=== PATIENT | female | born 1940 | race Caucasian/White ===

== ENCOUNTER 2023-02-12 07:51 | Inpatient (IN) | payer MEDICARE ==
[2023-02-12] VITALS (12 sets, daily range): BP systolic 2–166; BP diastolic 59–107
[~2023-02-12] VITALS: Ht 160 cm; Wt 54.2 kg
[2023-02-12 08:17] LABS: BASOPHILS % (AUTO) 0 % (0-10); EOSINOPHILS % (AUTO) 0 % (0-10); HEMATOCRIT 42 % (35-52); HEMOGLOBIN 13.6 g/dL (11.5-16.0); LYMPHOCYTES # (AUTO) 0.7 10^3/uL (1.0-4.0); LYMPHOCYTES % (AUTO) 7 % (12-44); MEAN CORPUSCULAR HEMOGLOBIN 30 pg (25-34); MEAN CORPUSCULAR HGB CONC 33 g/dL (32-36); MEAN CORPUSCULAR VOLUME 93 fL (80-99); MEAN PLATELET VOLUME 9.2 fL (9.0-12.2); MONOCYTES # (AUTO) 0.3 10^3/uL (0.0-1.0); MONOCYTES % (AUTO) 3 % (0-12); NEUTROPHILS # (AUTO) 8.8 10^3/uL (1.8-7.8); NEUTROPHILS % (AUTO) 89 % (42-75); PLATELET COUNT 210 10^3/uL (130-400); WHITE BLOOD COUNT 9.8 10^3/uL (4.3-11.0)
--- NOTE | 2023-02-12 08:22 | ED Dyspnea ---
General Chief Complaint: Respiratory Problems Stated Complaint: SOB Source of Information: Patient, EMS, Senior Living Records Exam Limitations: Other (dementia) History of Present Illness Date Seen by Provider: Feb 12, 2023 Time Seen by Provider: 07:51 Initial Comments 82-year-old female presenting by EMS from [facility] with complaints of shortness of breath. According to the detention she had increasing shortness of breath overnight. EMS reports that her oxygen saturation was 82% on room air when they arrived this morning. They placed her on 10 L by facemask and she came up to 100%. She has 3-4+ pitting edema in her bilateral lower extremities and EMS administered 40 mg of IV Lasix after they established peripheral IV access. She has a non productive cough. She has history of Dementia, CHF, Hypertension, Hyperlipidemia, CAD, Hypothyroid. She was just admitted to [facility] 2 days ago. Her son is in [place]. Timing/Duration: Increasing Severity: Moderate Activities at Onset: Rest Prior Episodes/Possible Cause: Chronic Episodes Associated Symptoms: Chest Pain (gripping chest pain), Cough, Edema Allergies and Home Medications Allergies Coded Allergies: NEIL Inhibitors (Verified Allergy, Unknown, 02/12/23) Iodinated Contrast Media (Verified Allergy, Unknown, 02/12/23) Sulfa (Sulfonamide Antibiotics) (Verified Allergy, Unknown, 02/12/23) clarithromycin (Verified Allergy, Unknown, 02/12/23) codeine (Verified Allergy, Unknown, 02/12/23) diazepam (Verified Allergy, Unknown, 02/12/23) diphenhydramine (Verified Allergy, Unknown, 02/12/23) fentanyl (Verified Allergy, Unknown, 02/12/23) garlic (Verified Allergy, Unknown, 02/12/23) hydrocodone (Verified Allergy, Unknown, 02/12/23) meloxicam (Verified Allergy, Unknown, 02/12/23) tositumomab (Verified Allergy, Unknown, 02/12/23) Patient Home Medication List Home Medication List Reviewed: Yes Review of Systems Review of Systems Constitutional: No chills, No fever EENTM: no symptoms reported Respiratory: see HPI Cardiovascular: see HPI Gastrointestinal: no symptoms reported Genitourinary: no symptoms reported Musculoskeletal: no symptoms reported Skin: no symptoms reported Psychiatric/Neurological: See HPI (chronic dementia) Past Dchefuf-Dnzusf-Owqiok Hx Patient Social History Tobacco Use?: No Substance use?: No Alcohol Use?: No Past Medical History Surgery/Hospitalization HX: Hypothryoid, Hyperlipidemia, Coronary Artery Disease, Hypertension, CHF, Dementia, DNR Physical Exam Vital Signs Vital Signs - First Documented 02/12/23 02/12/23 08:07 09:59 Temp 36.2 Pulse 85 Resp 24 B/P (MAP) 162/94 (116) Pulse Ox 96 O2 Delivery Nasal Cannula O2 Flow Rate 4.00 Capillary Refill : Height, Weight, BMI Height: '" Weight: lbs. oz. kg; BMI Method: General Appearance: No Apparent Distress, Chronically ill HEENT: Pharynx Normal Respiratory: Chest Non Tender, No Accessory Muscle Use, No Respiratory Distress, Decreased Breath Sounds, Rales Cardiovascular: Regular Rate, Rhythm, Normal Peripheral Pulses Gastrointestinal: No Pulsatile Mass, Non Tender, Soft Rectal: Deferred Extremity: Normal Capillary Refill, No Calf Tenderness, Pedal Edema (3 to 4 + pitting edema to BLE to up above her knees) Skin: Warm/Dry, Pallor Focused Exam Lactate Level 02/12/23 07:59: Lactic Acid Level 1.25 Lactic Acid Level Laboratory Tests Test 02/12/23 07:59 Lactic Acid Level 1.25 MMOL/L (0.50-2.00) Progress/Results/Core Measures Results/Orders Lab Results Laboratory Tests Test 02/12/23 07:59 02/12/23 08:10 02/12/23 09:00 Range/Units White Blood Count 9.8 4.3-11.0 10^3/uL Red Blood Count 4.51 3.80-5.11 10^6/uL Hemoglobin 13.6 11.5-16.0 g/dL Hematocrit 42 35-52 % Mean Corpuscular Volume 93 80-99 fL Mean Corpuscular Hemoglobin 30 25-34 pg Mean Corpuscular Hemoglobin Concent 33 32-36 g/dL Red Cell Distribution Width 15.2 H 10.0-14.5 % Platelet Count 210 130-400 10^3/uL Mean Platelet Volume 9.2 9.0-12.2 fL Immature Granulocyte % (Auto) 0 % Neutrophils (%) (Auto) 89 H 42-75 % Lymphocytes (%) (Auto) 7 L 12-44 % Monocytes (%) (Auto) 3 0-12 % Eosinophils (%) (Auto) 0 0-10 % Basophils (%) (Auto) 0 0-10 % Neutrophils # (Auto) 8.8 H 1.8-7.8 10^3/uL Lymphocytes # (Auto) 0.7 L 1.0-4.0 10^3/uL Monocytes # (Auto) 0.3 0.0-1.0 10^3/uL Eosinophils # (Auto) 0.0 0.0-0.3 10^3/uL Basophils # (Auto) 0.0 0.0-0.1 10^3/uL Immature Granulocyte # (Auto) 0.0 0.0-0.1 10^3/uL Neutrophils % (Manual) 83 % Lymphocytes % (Manual) 8 % Monocytes % (Manual) 5 % Eosinophils % (Manual) 0 % Basophils % (Manual) 0 % Band Neutrophils 4 % Platelet Estimate NORMAL Poikilocytosis SLIGHT Acanthocytes SLIGHT Sodium Level 136 135-145 MMOL/L Potassium Level 4.0 3.6-5.0 MMOL/L Chloride Level 98 98-107 MMOL/L Carbon Dioxide Level 23 21-32 MMOL/L Anion Gap 15 H 5-14 MMOL/L Blood Urea Nitrogen 26 H 7-18 MG/DL Creatinine 0.96 0.60-1.30 MG/DL Estimat Glomerular Filtration Rate 60 BUN/Creatinine Ratio 27 Glucose Level 168 H 70-105 MG/DL Lactic Acid Level 1.25 0.50-2.00 MMOL/L Calcium Level 9.3 8.5-10.1 MG/DL Corrected Calcium 9.3 8.5-10.1 MG/DL Magnesium Level 1.8 1.6-2.4 MG/DL Total Bilirubin 0.9 0.1-1.0 MG/DL Aspartate Amino Transf (AST/SGOT) 40 H 5-34 U/L Alanine Aminotransferase (ALT/SGPT) 63 H 0-55 U/L Alkaline Phosphatase 137 H 40-136 U/L Troponin I < 0.30 <0.30 NG/ML C-Reactive Protein < 0.30 <0.50 MG/DL Pro-B-Type Natriuretic Peptide 56617.0 H <450.0 PG/ML Total Protein 6.2 L 6.4-8.2 GM/DL Albumin 4.0 3.2-4.5 GM/DL Influenza Type A (RT-PCR) Not Detected Not Detecte Influenza Type B (RT-PCR) Not Detected Not Detecte SARS-CoV-2 RNA (RT-PCR) Not Detected Not Detecte Urine Color YELLOW Urine Clarity CLEAR Urine pH 5.5 5-9 Urine Specific Cobb 1.025 H 1.016-1.022 Urine Protein 2+ H NEGATIVE Urine Glucose (UA) NEGATIVE NEGATIVE Urine Ketones NEGATIVE NEGATIVE Urine Nitrite NEGATIVE NEGATIVE Urine Bilirubin NEGATIVE NEGATIVE Urine Urobilinogen 0.2 < = 1.0 MG/DL Urine Leukocyte Esterase NEGATIVE NEGATIVE Urine RBC (Auto) TRACE-I H NEGATIVE Urine RBC RARE /HPF Urine WBC 0-2 /HPF Urine Squamous Epithelial Cells NONE /HPF Urine Crystals NONE /LPF Urine Bacteria NEGATIVE /HPF Urine Casts PRESENT /LPF Urine Hyaline Casts 2-5 H /LPF Urine Mucus NEGATIVE /LPF Urine Culture Indicated NO My Orders Orders - RHONDA SILVERIO MD Cbc With Automated Diff (02/12/23 08:06) Comprehensive Metabolic Panel (02/12/23 08:06) Blood Culture (02/12/23 08:06) Chest 1 View Ap/Pa Only (02/12/23 08:06) Magnesium (02/12/23 08:06) Ekg Tracing (02/12/23 08:06) O2 (02/12/23 08:06) Ed Iv/Invasive Line Start (02/12/23 08:06) Monitor-Rhythm Ecg Trace Only (02/12/23 08:06) Crp Fs (02/12/23 08:06) Lactic Acid Analyzer (02/12/23 08:06) Covid 19 Inhouse Test (02/12/23 08:06) Influenza A And B By Pcr (02/12/23 08:06) Troponin I Fs (02/12/23 08:06) Probnp Fs (02/12/23 08:06) Code/Resuscitation (02/12/23 08:09) Manual Differential (02/12/23 07:59) Ellis Cath (02/12/23 08:47) Ua Culture If Indicated (02/12/23 08:47) Ed Admission (Communication) (02/12/23 09:39) Furosemide Injection (Furosemide Injec (02/12/23 09:43) Vital Signs/I&O 02/12/23 02/12/23 08:07 09:59 Temp 36.2 36.0 Pulse 85 85 Resp 24 32 B/P (MAP) 162/94 (116) 164/107 Pulse Ox 96 95 O2 Delivery Nasal Cannula Nasal Cannula O2 Flow Rate 4.00 Admisison Planning May Need Admission (Planning): 07:51 Progress Progress Note #1: Progress Note Potential diagnosis of CHF exacerbation, hypoxia, myocardial infarction, pneumonia, COVID, influenza, fluid overload, pulmonary edema, renal failure, hepatic failure, anemia. Placed on supplemental oxygen and titrate to keep O2 sats above 92%. She was switched from the facemask at 10 L to nasal cannula at 3 L. With this she was maintaining 92 to 94%. Placed on cardiac night monitor and initially my interpretation was sinus rhythm with heart rate in the 80s. Draw labs to check complete blood count, comprehensive metabolic profile, proBNP, troponin, blood cultures, lactic acid. Nasal swab to check for COVID and influenza. 1 view chest x-ray to look for pulmonary edema or infiltrate. Progress Note #2: Time: 08:36 Progress Note On my personal interpretation and review of the 1 view chest x-ray she has bilateral pleural effusions with only a small amount of her lungs being aerated. She was complaining that she needed more air so she was increased from 3 Lpm on O2 to 4 Lpm by n.c. 0853 nasal swab for COVID and influenza are both negative. Her lactic acid is normal at 1.25. Her complete blood count showed white blood cell count at the upper limit of normal at 9.8. She was not anemic with a hemoglobin of 13.6. Normal platelets of 210. She did have 83% neutrophils with 8% lymphocytes and 4% bands on her differential. She is afebrile with a temperature of 36.2 and has some hypertension with blood pressure of 162/94. She is tachypneic get times with respirations varying from 16-24. She appears to get anxious at times and is crying out that she is hot and other times that she is cold. She also is occasionally crying out that she needs more air. Her oxygen was increased by nasal cannula up to 4 L/min. She continues to maintain oxygen saturations 90 to 92% on that. With her bilateral large pleural effusions seen on my interpretation of her 1 view chest xray I added a Ellis catheter for accurate Input/Output measurement and will consider checking with Dr. Cohen, insulation worker apprentice hospitalist for [facility] about admit for her CHF exacerbation with hypoxia. Progress Note #3: Time: 09:17 Progress Note Comprehensive metabolic profile shows no acute electrolyte abnormality with her basic electrolytes. Her BUN was 26 with a creatinine of 0.96. She did have mild elevation of her glucose to 168 but unknown if she had breakfast prior to coming to the ED. She does not have a history listed of being diabetic. Her troponin was negative at less than 0.3 as well as a CRP was less than 0.3. Magnesium was 1.8. Her proBNP was elevated to the point that lab was having to dilute it to get a result. Her urinalysis from the cath specimen showed a specific gravity of 1.025 with 2+ proteinuria but negative bacteria, nitrites, leukocyte esterase, white blood cells to indicate a UTI. I tried calling the o n-call phone for [facility] admission and it had not been forwarded to the day provider yet. I tried reaching out to Dr. Cohen the on-call hospitalist for [facility] today about admission and I am waiting on a return call. [phone] [place] [phone]. She does have mild elevation of her LFTs which may be secondary to the congestive heart failure. Her AST is 40, ALT 63 and alkaline phosphatase of 137. Progress Note #4: Time: 09:40 Progress Note d/w Dr. Cohen for [facility] about patient. I reviewed briefly the patient's history that is known as well as presentation today with hypoxia down to 82% on room air. On 4 L by nasal cannula she has been satting 92 to 94%. Her electrocardiogram did not show acute ischemia as well as her troponin was negative. However [place] [id number]. Along with this she has 3-4+ pitting edema up to her thighs. She has already received 40 of Lasix IV by EMS and has a catheter in with about 350 mL of urine out so far. Chest x-ray shows bilateral large pleural effusions. She accepted the patient for admission to cardiac stepdown for diuresis. She did request cardiology consult. [phone] Moffett the on-call video presentation operator for [facility]. I reviewed that patient's presentation and history as well as her pertinent labs and findings. He was agreeable to consult and requested an additional 40 mg IV Lasix to try and help more with the diuresis. Initial ECG Impression Date: Feb 12, 2023 Initial ECG Impression Time: 08:17 Initial ECG Rate: 89 Initial ECG Rhythm: Normal Sinus Initial ECG Comparisson: No Previous ECG Available Comment On my personal interpretation and review her electrocardiogram shows a sinus rhythm with a heart rate of [address] elevation. There is intraventricular conduction delay. FL interval 187 ms. QT interval 424 ms with a QTc interval 470 ms. There is no prior tracing available for comparison. Diagnostic Imaging Diagonstic Imaging: Xray Plain Films/CT/US/NM/MRI: chest Comments NAME: ARUNA FERNANDES I [facility] REC#: [id number] PT STATUS: REG ER : 1940 PHYSICIAN: RHONDA SILVERIO MD ADMIT DATE: 02/12/23/ER FS Signed Date of Exam:02/12/23 CHEST 1 VIEW AP/PA ONLY INDICATION: Shortness of breath, hypoxia. Frontal chest obtained at 08:22 a.m. FINDINGS: There is poststernotomy change and cardiomegaly. There is central vascular congestion with diffuse interstitial edema and extensive bibasilar infiltrate. There are large bilateral pleural effusions. There is no pneumothorax. IMPRESSION: Cardiomegaly and poststernotomy change with central vascular congestion and edema. Bibasilar infiltrates and large bilateral pleural effusions. Dictated by: Dictated on workstation # [id number] Dict: 02/12/23 1039 Trans: 02/12/23 1050 [id number] Interpreted by: JUSTINE LESLIE MD Electronically signed by: JUSTINE LESLIE MD 02/12/23 1050 Reviewed: Reviewed by Me (Reviewed radiologist report at 1058) Departure Communication (Admissions) Time/Spoke to Admitting Phy: 09:40 d/w Dr. Cohen for [facility] about patient. I reviewed briefly the patient's history that is known as well as presentation today with hypoxia down to 82% on room air. On 4 L by nasal cannula she has been satting 92 to 94%. Her electrocardiogram did not show acute ischemia as well as her troponin was negative. However [place] [address]. Along with this she has 3-4+ pitting edema up to her thighs. She has already received 40 of Lasix IV by EMS and has a catheter in with about 350 mL of urine out so far. Chest x-ray shows bilateral large pleural effusions. She accepted the patient for admission to cardiac stepdown for diuresis. She did request cardiology consult. Time/Spoke to Consulting Phy: 09:[phone] Moffett the on-call video presentation operator for [facility]. I reviewed that patient's presentation and history as well as her pertinent labs and findings. He was agreeable to consult and requested an additional 40 mg IV Lasix to try and help more with the diuresis. Impression Primary Impression: Hypoxia Additional Impressions: Dyspnea Qualified Codes: R06.02 - Shortness of breath Acute exacerbation of CHF (congestive heart failure) Qualified Codes: I50.9 - Heart failure, unspecified Dementia Qualified Codes: F03.94 - Unspecified dementia, unspecified severity, with anxiety Essential hypertension Disposition: 30 STILL A PATIENT Condition: Stable Admissions Decision to Admit Reason: Admit from ER (General) Decision to Admit/Date: Feb 12, 2023 Time/Decision to Admit Time: 09:40 Departure-Patient Inst. Referrals: FRANCIE CHIN MD (PCP) Primary Care Physician RHONDA SILVERIO MD Feb 12, 2023 08:22
[2023-02-12 08:46] LABS: BAND NEUTROPHILS 4 %; BASOPHILS % (MANUAL) 0 %; EOSINOPHILS % (MANUAL) 0 %; LYMPHOCYTES % (MANUAL) 8 %; MONOCYTES % (MANUAL) 5 %; NEUTROPHILS % (MANUAL) 83 %; PLATELET ESTIMATE NORMAL; POIKILOCYTOSIS SLIGHT
[2023-02-12 08:47] LABS: ACANTHOCYTES SLIGHT
[2023-02-12 08:48] LABS: ALKALINE PHOSPHATASE 137 U/L (40-136); BILIRUBIN,TOTAL 0.9 MG/DL (0.1-1.0); BUN/CREATININE RATIO 27; CALCIUM 9.3 MG/DL (8.5-10.1); CARBON DIOXIDE 23 MMOL/L (21-32); CHLORIDE 98 MMOL/L (98-107); CREATININE SERUM 0.96 MG/DL (0.60-1.30); GFR ESTIMATED 60; GLUCOSE 168 MG/DL (70-105); MAGNESIUM 1.8 MG/DL (1.6-2.4); SODIUM 136 MMOL/L (135-145)
[2023-02-12 08:49] LABS: ALANINE AMINOTRANSFERASE 63 U/L (0-55); TOTAL PROTEIN 6.2 GM/DL (6.4-8.2)
[2023-02-12 09:07] LABS: BILIRUBIN,URINE NEGATIVE (NEGATIVE); CLARITY,URINE CLEAR; COLOR,URINE YELLOW; GLUCOSE, URINE (UA) NEGATIVE (NEGATIVE); KETONES,URINE NEGATIVE (NEGATIVE); LEUKOCYTE ESTERASE ,URINE NEGATIVE (NEGATIVE); NITRITE,URINE NEGATIVE (NEGATIVE); PH,URINE 5.5 (5-9); PROTEIN,URINE 2+ (NEGATIVE)
[2023-02-12 09:15] LABS: BACTERIA,URINE NEGATIVE /HPF; RBC,URINE RARE /HPF; WBC,URINE 0-2 /HPF
[2023-02-12] MEDS ORDERED: FUROSEMIDE INJECTION 40 MG/4 ML VIAL IVP STA (09:43)
--- NOTE | 2023-02-12 10:44 | Diagnostic Imaging Report ---
INDICATION: Shortness of breath, hypoxia. Frontal chest obtained at 08:22 a.m. FINDINGS: There is poststernotomy change and cardiomegaly. There is central vascular congestion with diffuse interstitial edema and extensive bibasilar infiltrate. There are large bilateral pleural effusions. There is no pneumothorax. IMPRESSION: Cardiomegaly and poststernotomy change with central vascular congestion and edema. Bibasilar infiltrates and large bilateral pleural effusions. Dictated by: Dictated on workstation # [id number]
[2023-02-12] MEDS ORDERED: CARV12.53 PO (12:36)
[2023-02-12] MEDS ORDERED: CAPT12.52 PO (12:36)
[2023-02-12] MEDS ORDERED: LEVO75TA6 PO (12:36)
--- NOTE | 2023-02-12 12:50 | Consultation-Cardiology ---
HPI-Cardiology Cardiology Consultation Date of Consultation 02/12/23 Date of Admission Time Seen by Provider: 12:47 Indication: Congestive heart failure HPI 82 years old lady with history of COPD. [facility] resident, brought into the emergency room in [place] for increasing dyspnea, her oxygen saturation was reported to be in the lower 80s. She was started on a facemask and improved. On my evaluation she was laying down in bed, denied any chest pain, still having shortness of breath and peripheral edema. No syncope or near syncopal episode. Patient has underlying dementia, unable to provide full history. Home Medications & Allergies Allergies: Coded Allergies: NEIL Inhibitors (Verified Allergy, Unknown, 02/12/23) Iodinated Contrast Media (Verified Allergy, Unknown, 02/12/23) Sulfa (Sulfonamide Antibiotics) (Verified Allergy, Unknown, 02/12/23) clarithromycin (Verified Allergy, Unknown, 02/12/23) codeine (Verified Allergy, Unknown, 02/12/23) diazepam (Verified Allergy, Unknown, 02/12/23) diphenhydramine (Verified Allergy, Unknown, 02/12/23) fentanyl (Verified Allergy, Unknown, 02/12/23) garlic (Verified Allergy, Unknown, 02/12/23) hydrocodone (Verified Allergy, Unknown, 02/12/23) meloxicam (Verified Allergy, Unknown, 02/12/23) tositumomab (Verified Allergy, Unknown, 02/12/23) Home Medication List Reviewed: Yes OYR-Csvmel-Gkyety Hx Patient Social History Marital Status: single Employed/Student: retired Alcohol Use?: No Past Medical History Discussed below Family Medical History Significant Family History: No Pertinent Family Hx Review of Systems-General Review of Systems Constitutional: No chills, No fever EENTM: no symptoms reported Respiratory: see HPI, orthopnea, short of breath Cardiovascular: see HPI; No chest pain; edema; No Hx of Intervention, No palp itations, No syncope, No vascular heart diseas, No other Gastrointestinal: no symptoms reported Genitourinary: no symptoms reported Musculoskeletal: no symptoms reported Skin: no symptoms reported Psychiatric/Neurological: See HPI (chronic dementia) Reviewed Test Results Reviewed Test Results Lab Laboratory Tests Test 02/12/23 07:59 02/12/23 08:10 02/12/23 09:00 Range/Units White Blood Count 9.8 4.3-11.0 10^3/uL Red Blood Count 4.51 3.80-5.11 10^6/uL Hemoglobin 13.6 11.5-16.0 g/dL Hematocrit 42 35-52 % Mean Corpuscular Volume 93 80-99 fL Mean Corpuscular Hemoglobin 30 25-34 pg Mean Corpuscular Hemoglobin Concent 33 32-36 g/dL Red Cell Distribution Width 15.2 H 10.0-14.5 % Platelet Count 210 130-400 10^3/uL Mean Platelet Volume 9.2 9.0-12.2 fL Immature Granulocyte % (Auto) 0 % Neutrophils (%) (Auto) 89 H 42-75 % Lymphocytes (%) (Auto) 7 L 12-44 % Monocytes (%) (Auto) 3 0-12 % Eosinophils (%) (Auto) 0 0-10 % Basophils (%) (Auto) 0 0-10 % Neutrophils # (Auto) 8.8 H 1.8-7.8 10^3/uL Lymphocytes # (Auto) 0.7 L 1.0-4.0 10^3/uL Monocytes # (Auto) 0.3 0.0-1.0 10^3/uL Eosinophils # (Auto) 0.0 0.0-0.3 10^3/uL Basophils # (Auto) 0.0 0.0-0.1 10^3/uL Immature Granulocyte # (Auto) 0.0 0.0-0.1 10^3/uL Neutrophils % (Manual) 83 % Lymphocytes % (Manual) 8 % Monocytes % (Manual) 5 % Eosinophils % (Manual) 0 % Basophils % (Manual) 0 % Band Neutrophils 4 % Platelet Estimate NORMAL Poikilocytosis SLIGHT Acanthocytes SLIGHT Sodium Level 136 135-145 MMOL/L Potassium Level 4.0 3.6-5.0 MMOL/L Chloride Level 98 98-107 MMOL/L Carbon Dioxide Level 23 21-32 MMOL/L Anion Gap 15 H 5-14 MMOL/L Blood Urea Nitrogen 26 H 7-18 MG/DL Creatinine 0.96 0.60-1.30 MG/DL Estimat Glomerular Filtration Rate 60 BUN/Creatinine Ratio 27 Glucose Level 168 H 70-105 MG/DL Lactic Acid Level 1.25 0.50-2.00 MMOL/L Calcium Level 9.3 8.5-10.1 MG/DL Corrected Calcium 9.3 8.5-10.1 MG/DL Magnesium Level 1.8 1.6-2.4 MG/DL Total Bilirubin 0.9 0.1-1.0 MG/DL Aspartate Amino Transf (AST/SGOT) 40 H 5-34 U/L Alanine Aminotransferase (ALT/SGPT) 63 H 0-55 U/L Alkaline Phosphatase 137 H 40-136 U/L Troponin I < 0.30 <0.30 NG/ML C-Reactive Protein < 0.30 <0.50 MG/DL Pro-B-Type Natriuretic Peptide 41323.0 H <450.0 PG/ML Total Protein 6.2 L 6.4-8.2 GM/DL Albumin 4.0 3.2-4.5 GM/DL Influenza Type A (RT-PCR) Not Detected Not Detecte Influenza Type B (RT-PCR) Not Detected Not Detecte SARS-CoV-2 RNA (RT-PCR) Not Detected Not Detecte Urine Color YELLOW Urine Clarity CLEAR Urine pH 5.5 5-9 Urine Specific [place] 1.025 H 1.016-1.022 Urine Protein 2+ H NEGATIVE Urine Glucose (UA) NEGATIVE NEGATIVE Urine Ketones NEGATIVE NEGATIVE Urine Nitrite NEGATIVE NEGATIVE Urine Bilirubin NEGATIVE NEGATIVE Urine Urobilinogen 0.2 < = 1.0 MG/DL Urine Leukocyte Esterase NEGATIVE NEGATIVE Urine RBC (Auto) TRACE-I H NEGATIVE Urine RBC RARE /HPF Urine WBC 0-2 /HPF Urine Squamous Epithelial Cells NONE /HPF Urine Crystals NONE /LPF Urine Bacteria NEGATIVE /HPF Urine Casts PRESENT /LPF Urine Hyaline Casts 2-5 H /LPF Urine Mucus NEGATIVE /LPF Urine Culture Indicated NO Physical Exam Physical Exam Vital Signs Vital Signs - First Documented 02/12/23 02/12/23 08:07 09:59 Temp 36.2 Pulse 85 Resp 24 B/P (MAP) 162/94 (116) Pulse Ox 96 O2 Delivery Nasal Cannula O2 Flow Rate 4.00 Capillary Refill : Height, Weight, BMI Height: '" Weight: lbs. oz. kg; BMI Method: General Appearance: No Apparent Distress, Chronically ill Eyes: Bilateral Eye Normal Inspection, Bilateral Eye PERRL, Bilateral Eye EOMI HEENT: Pharynx Normal Neck: Full Range of Motion, Normal Inspection, Non Tender, Supple, Carotid Bruit Respiratory: Chest Non Tender, No Accessory Muscle Use, No Respiratory Distress, Decreased Breath Sounds, Rales Cardiovascular: Regular Rate, Rhythm, Normal Peripheral Pulses, Systolic Murmur, Gallop/S3 Gastrointestinal: No Pulsatile Mass, Non Tender, Soft Rectal: Deferred Back: Normal Inspection, No CVA Tenderness, No Vertebral Tenderness Extremity: Normal Capillary Refill, No Calf Tenderness, Pedal Edema (3 to 4 + pitting edema to BLE to up above her knees) Neurologic/Psychiatric: Alert, Oriented x3, No Motor/Sensory Deficits, Normal Mood/Affect Skin: Warm/Dry, Pallor Lymphatic: No Adenopathy A/P-Cardiology Admission Diagnosis Congestive heart failure Coronary artery disease Hypertension Hyperlipidemia Assessment/Plan Congestive heart failure, acute decompensation Started on IV Lasix Significant elevation in BNP. Monitor response to diuretics. Evaluate 2D echo. Coronary artery disease, unable to provide history but overall appears to be stable Troponin is negative. Continue to monitor troponin Hypertension, restart home medication monitor blood pressure Hyperlipidemia, monitor lipids Extensive history of allergy to medication Dementia DOMINIC LOZANO MD Feb 12, 2023 12:50
[2023-02-12] MEDS ORDERED: RT-Ipratropium/Albuterol NEB 3 ML VIAL INH PRN (13:45)
[2023-02-12] MEDS: ENOXAPARIN 40 MG/0.4 ML SYRINGE SC SCH (14:20)
[2023-02-12] MEDS: RT-Ipratropium/Albuterol NEB 3 ML VIAL INH SCH ×3 (15:31→22:48)
[2023-02-13] VITALS (19 sets, daily range): BP systolic 105–127; BP diastolic 47–89
[2023-02-13] MEDS: RT-Ipratropium/Albuterol NEB 3 ML VIAL INH SCH ×6 (02:16→22:14)
[2023-02-13 04:46] LABS: BASOPHILS % (AUTO) 0 % (0-10); EOSINOPHILS # (AUTO) 0.1 10^3/uL (0.0-0.3); EOSINOPHILS % (AUTO) 1 % (0-10); HEMATOCRIT 32 % (35-52); HEMOGLOBIN 10.7 g/dL (11.5-16.0); LYMPHOCYTES % (AUTO) 11 % (12-44); MEAN CORPUSCULAR HEMOGLOBIN 30 pg (25-34); MEAN CORPUSCULAR HGB CONC 33 g/dL (32-36); MEAN CORPUSCULAR VOLUME 90 fL (80-99); MEAN PLATELET VOLUME 9.8 fL (9.0-12.2); MONOCYTES # (AUTO) 0.7 10^3/uL (0.0-1.0); MONOCYTES % (AUTO) 8 % (0-12); NEUTROPHILS % (AUTO) 80 % (42-75); PLATELET COUNT 148 10^3/uL (130-400); WHITE BLOOD COUNT 8.8 10^3/uL (4.3-11.0)
[2023-02-13 05:03] LABS: ALBUMIN 2.8 GM/DL (3.2-4.5)
[2023-02-13 05:04] LABS: POTASSIUM 3.1 MMOL/L (3.6-5.0)
[2023-02-13 05:05] LABS: CALCIUM 8.2 MG/DL (8.5-10.1)
[2023-02-13 05:06] LABS: TOTAL PROTEIN 4.7 GM/DL (6.4-8.2)
[2023-02-13 05:08] LABS: BILIRUBIN,TOTAL 1.1 MG/DL (0.1-1.0)
[2023-02-13 05:10] LABS: CREATININE SERUM 0.88 MG/DL (0.60-1.30)
[2023-02-13] MEDS: LEVOTHYROXINE 75 MCG TABLET PO SCH (06:24)
--- NOTE | 2023-02-13 08:05 | Cardiology Progress Note ---
Subjective Date Seen by Provider: Feb 13, 2023 Time Seen by Provider: 08:02 Subjective/Events-last exam Patient is laying down in bed, feeling better. No new complain Review of Systems General: No Chills, No Night Sweats; Fatigue; No Malaise, No Appetite, No Other HEENT: No Head Aches, No Visual Changes, No Eye Pain, No Ear Pain, No Dysphasia, No Sinus Congestion, No Post Nasal Drip, No Sore Throat, No Other Pulmonary: Dyspnea; No Cough, No Pleuritic Chest Pain, No Other Cardiovascular: No: Chest Pain, Palpitations, Orthopnea, Paroxysmal Noc. Dyspnea, Edema, Lt Headedness, Other Focused Exam Lactate Level 02/12/23 07:59: Lactic Acid Level 1.25 Objective-Cardiology Exam Last Set of Vital Signs Vital Signs 02/13/23 07:47 Temp 36.3 Pulse 62 Resp 26 B/P (MAP) 125/66 (85) Pulse Ox 97 O2 Delivery Nasal Cannula O2 Flow Rate 2.00 I&O Intake and Output 02/13/23 00:00 Intake Total 330 ml Output Total 1500 ml Balance -1170 ml Intake Oral 330 ml Output Urine Total 1500 ml Daily Weight Change No General: Alert, Cooperative HEENT: Atraumatic, PERRLA Neck: Supple Lungs: Clear to Auscultation, Normal Air Movement Heart: Regular Rate, Normal S1, Normal S2 Abdomen: Normal Bowel Sounds Extremities: No Clubbing, No Cyanosis Skin: No Rashes, No Breakdown Neuro: Normal Speech Results Lab Laboratory Tests 02/13/23 04:19 A/P-Cardiology Admission Diagnosis Congestive heart failure Coronary artery disease Hypertension Hyperlipidemia Assessment/Plan Congestive heart failure, acute left ventricular systolic dysfunction, ischemic cardiomyopathy. 2D echo done on February 12, 2023 with dilated left ventricle, ejection fraction 25 to 30%, moderate to severe mitral regurgitation, PA pressure 45 to 50 mmHg Continue with diuresis. Maintained on captopril and Coreg, adding Jardiance and Aldactone Hypokalemia, replace and monitor Coronary artery disease, unable to provide history but overall appears to be stable Mild elevation in troponin, type II myocardial infarction secondary to cardiomyopathy. Hypertension, monitor blood pressure Hyperlipidemia, monitor lipids Extensive history of allergy to medication Dementia DOMINIC LOZANO MD Feb 13, 2023 08:05
[2023-02-13] MEDS: EMPAGLIFLOZIN 10 MG TABLET PO SCH (08:21)
[2023-02-13] MEDS: SPIRONOLACTONE 25 MG (ALDACTONE) TAB PO SCH (08:21)
[2023-02-13] MEDS: FUROSEMIDE INJECTION 40 MG/4 ML VIAL IV SCH (08:22)
[2023-02-13] MEDS: ASPIRIN 81 MG CHEWABLE TABLET PO SCH (08:22)
[2023-02-13] MEDS: carvediloL 12.5 MG TABLET PO SCH ×2 (08:22→17:39)
[2023-02-13] MEDS: CAPTOPRIL 25 MG TABLET PO SCH (08:26)
[2023-02-13] MEDS ORDERED: POTASSIUM CHLORIDE 10 MEQ TABLET PO NR (10:00)
[2023-02-13] MEDS: ENOXAPARIN 40 MG/0.4 ML SYRINGE SC SCH (14:53)
--- NOTE | 2023-02-13 18:49 | History & Physical ---
HPI History of Present Illness: 82 yo F presented to ER with increasing shortness of breath over the last few days. States that she is feeling better this AM. She is pleasantly demented and hard to get history from. States that she does not usually have to wear oxygen. Denies any shortness of breath or chest pain this AM. 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 Patients Allergies have been reviewed. Allergies Coded Allergies: NEIL Inhibitors (Verified Allergy, Unknown, 02/12/23) Iodinated Contrast Media (Verified Allergy, Unknown, 02/12/23) Sulfa (Sulfonamide Antibiotics) (Verified Allergy, Unknown, 02/12/23) clarithromycin (Verified Allergy, Unknown, 02/12/23) codeine (Verified Allergy, Unknown, 02/12/23) diazepam (Verified Allergy, Unknown, 02/12/23) diphenhydramine (Verified Allergy, Unknown, 02/12/23) fentanyl (Verified Allergy, Unknown, 02/12/23) garlic (Verified Allergy, Unknown, 02/12/23) hydrocodone (Verified Allergy, Unknown, 02/12/23) meloxicam (Verified Allergy, Unknown, 02/12/23) tositumomab (Verified Allergy, Unknown, 02/12/23) IQX-Tishwn-Ysguuh Hx Patient Social History Marrital Status: single Living Status: Lives in Memory care Employed/Student: retired Alcohol Use?: No Past Medical History Dementia Family Medical History Significant Family History: No Pertinent Family Hx Review of Systems (CHC) Constitutional: no symptoms reported; No chills, No fever EENTM: no symptoms reported Respiratory: No cough; dyspnea on exertion, short of breath Cardiovascular: no symptoms reported; No chest pain; edema; No palpitations Gastrointestinal: no symptoms reported; No abdominal pain, No nausea, No vomiting Genitourinary: frequency Musculoskeletal: no symptoms reported Skin: no symptoms reported Psychiatric/Neurological: Weakness Reviewed Test Results Reviewed Test Results Lab Laboratory Tests Test 02/13/23 04:19 Range/Units White Blood Count 8.8 4.3-11.0 10^3/uL Red Blood Count 3.56 L 3.80-5.11 10^6/uL Hemoglobin 10.7 #L 11.5-16.0 g/dL Hematocrit 32 L 35-52 % Mean Corpuscular Volume 90 80-99 fL Mean Corpuscular Hemoglobin 30 25-34 pg Mean Corpuscular Hemoglobin Concent 33 32-36 g/dL Red Cell Distribution Width 15.1 H 10.0-14.5 % Platelet Count 148 130-400 10^3/uL Mean Platelet Volume 9.8 9.0-12.2 fL Immature Granulocyte % (Auto) 0 % Neutrophils (%) (Auto) 80 H 42-75 % Lymphocytes (%) (Auto) 11 L 12-44 % Monocytes (%) (Auto) 8 0-12 % Eosinophils (%) (Auto) 1 0-10 % Basophils (%) (Auto) 0 0-10 % Neutrophils # (Auto) 7.0 1.8-7.8 10^3/uL Lymphocytes # (Auto) 1.0 1.0-4.0 10^3/uL Monocytes # (Auto) 0.7 0.0-1.0 10^3/uL Eosinophils # (Auto) 0.1 0.0-0.3 10^3/uL Basophils # (Auto) 0.0 0.0-0.1 10^3/uL Immature Granulocyte # (Auto) 0.0 0.0-0.1 10^3/uL Sodium Level 140 135-145 MMOL/L Potassium Level 3.1 L 3.6-5.0 MMOL/L Chloride Level 105 98-107 MMOL/L Carbon Dioxide Level 25 21-32 MMOL/L Anion Gap 10 5-14 MMOL/L Blood Urea Nitrogen 25 H 7-18 MG/DL Creatinine 0.88 0.60-1.30 MG/DL Estimat Glomerular Filtration Rate 66 BUN/Creatinine Ratio 28 Glucose Level 87 70-105 MG/DL Calcium Level 8.2 L 8.5-10.1 MG/DL Corrected Calcium 9.2 8.5-10.1 MG/DL Total Bilirubin 1.1 H 0.1-1.0 MG/DL Aspartate Amino Transf (AST/SGOT) 23 5-34 U/L Alanine Aminotransferase (ALT/SGPT) 40 0-55 U/L Alkaline Phosphatase 78 40-136 U/L Troponin I 0.043 H <0.028 NG/ML B-Type Natriuretic Peptide 3536.4 H <100.0 PG/ML Total Protein 4.7 L 6.4-8.2 GM/DL Albumin 2.8 L 3.2-4.5 GM/DL Thyroid Stimulating Hormone (TSH) 6.60 H 0.35-4.94 UIU/ML Physical Exam-(CHC) Physical Exam Vital Signs VS - Last 72 Hours, by Label 02/12/23 02/12/23 02/12/23 02/12/23 08:07 09:59 11:20 11:28 Temp 36.2 36.0 Pulse 85 85 85 Resp 24 32 B/P (MAP) 162/94 (116) 164/107 Pulse Ox 96 95 96 O2 Delivery Nasal Cannula Nasal Cannula Nasal Cannula O2 Flow Rate 4.00 4.00 02/12/23 02/12/23 02/12/23 02/12/23 11:30 11:45 12:00 12:15 Pulse 84 89 76 80 Resp 22 31 26 24 B/P (MAP) 165/103 (123) 166/100 (122) 156/87 (110) 160/95 (116) Pulse Ox 93 93 95 95 O2 Delivery Nasal Cannula Nasal Cannula Nasal Cannula Nasal Cannula O2 Flow Rate 4.00 4.00 4.00 4.00 02/12/23 02/12/23 02/12/23 02/12/23 12:30 12:45 12:46 13:00 Pulse 77 79 79 80 Resp 29 B/P (MAP) 148/85 (106) 161/96 (117) 162/102 (122) Pulse Ox 97 96 95 O2 Delivery Nasal Cannula Nasal Cannula Nasal Cannula O2 Flow Rate 4.00 4.00 4.00 02/12/23 02/12/23 02/12/23 02/12/23 14:00 15:00 16:08 19:00 Temp 36.0 Pulse 89 84 82 Resp 30 B/P (MAP) 155/107 (123) 161/88 (112) Pulse Ox 98 96 O2 Delivery Nasal Cannula Nasal Cannula O2 Flow Rate 4.00 4.00 8/2802/12/23 02/12/23 02/12/23 19:09 19:42 20:00 20:00 Temp 36.4 Pulse 78 77 Resp 25 25 B/P (MAP) 151/86 (107) 138/67 (90) Pulse Ox 98 99 98 99 O2 Delivery Nasal Cannula Nasal Cannula Nasal Cannula O2 Flow Rate 4.00 4.00 4.00 02/12/23 02/12/23 02/13/23 02/13/23 22:00 22:48 00:00 00:19 Temp 36.1 Pulse 68 64 Resp 16 15 B/P (MAP) 117/59 (78) 110/54 (72) Pulse Ox 98 98 99 O2 Delivery Nasal Cannula Nasal Cannula Nasal Cannula O2 Flow Rate 4.00 4.00 4.00 02/13/23 02/13/23 02/13/23 02/13/23 01:00 01:00 02:00 02:16 Pulse 63 67 64 Resp 17 17 B/P (MAP) 123/58 (87) 107/53 (71) Pulse Ox 96 96 96 O2 Delivery Nasal Cannula Nasal Cannula Nasal Cannula O2 Flow Rate 4.00 4.00 1.00 02/13/23 02/13/23 02/13/23 02/13/23 03:00 03:48 04:00 05:00 Temp 36.4 Pulse 69 68 68 60 Resp 19 20 28 B/P (MAP) 124/72 (94) 117/54 (80) 105/48 (67) Pulse Ox 96 93 96 96 O2 Delivery Nasal Cannula Nasal Cannula Nasal Cannula O2 Flow Rate 4.00 55.00 2.00 2.00 02/13/23 02/13/23 02/13/23 02/13/23 06:00 07:00 07:30 07:47 Temp 36.3 Pulse 72 65 62 Resp 14 26 B/P (MAP) 114/89 (97) 125/66 (85) Pulse Ox 95 91 97 O2 Delivery Nasal Cannula Nasal Cannula Nasal Cannula O2 Flow Rate 2.00 1.00 2.00 02/13/23 02/13/23 02/13/23 02/13/23 08:00 09:00 10:57 12:25 Pulse 63 75 Resp 20 B/P (MAP) 121/60 (80) Pulse Ox 98 96 94 O2 Delivery Nasal Cannula Nasal Cannula Nasal Cannula O2 Flow Rate 2.00 2.00 1.00 02/13/23 02/13/23 02/13/23 02/13/23 13:38 13:39 13:45 15:47 Temp 36.3 36.6 Pulse 64 Resp 22 B/P (MAP) 116/62 (80) Pulse Ox 99 97 O2 Delivery Nasal Cannula Nasal Cannula O2 Flow Rate 1.00 2.00 02/13/23 02/13/23 02/13/23 15:48 16:00 18:00 Pulse 81 72 89 Resp 20 22 35 B/P (MAP) 117/71 (86) 107/60 (76) 126/72 (90) Pulse Ox 96 96 94 O2 Delivery Nasal Cannula Nasal Cannula Nasal Cannula O2 Flow Rate 2.00 2.00 2.00 Capillary Refill : General Appearance: WD/WN, no apparent distress, thin HEENT: PERRL/EOMI Neck: non-tender, full range of motion Respiratory: chest non-tender, no accessory muscle use, crackles Cardiovascular: normal peripheral pulses, regular rate, rhythm, other (Pansystolic murmur present) Gastrointestinal: normal bowel sounds, non tender, soft Back: no CVA tenderness, no vertebral tenderness Extremities: normal range of motion, no pedal edema, no calf tenderness, normal capillary refill Neurologic/Psychiatric: sand buffer II-XII nml as tested, alert Skin: normal color, warm/dry Lymphatic: no adenopathy Assessment/Plan Assessment/Plan Admission Status: Inpatient Order (span 2 midnights) Reason for Inpatient Admission: Need for close observation and high risk for decompensation Assessment & Plan A/P Acute Respiratory Failure Acute systolic CHF Severe Mitrial Valve Regurgitation - EF 25-30%, Cardiology consulted, appreciate recommendations, IV lasix, Will titrate oxygen as tolerated, Strict I/Os CAD HTN HLD hypothyroidism - 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
[2023-02-14] VITALS (16 sets, daily range): BP systolic 115–140; BP diastolic 58–80
[2023-02-14] MEDS: RT-Ipratropium/Albuterol NEB 3 ML VIAL INH SCH ×6 (02:43→22:14)
[2023-02-14 04:15] LABS: BASOPHILS % (AUTO) 1 % (0-10); EOSINOPHILS # (AUTO) 0.2 10^3/uL (0.0-0.3); EOSINOPHILS % (AUTO) 2 % (0-10); HEMATOCRIT 32 % (35-52); HEMOGLOBIN 10.5 g/dL (11.5-16.0); LYMPHOCYTES # (AUTO) 1.1 10^3/uL (1.0-4.0); LYMPHOCYTES % (AUTO) 14 % (12-44); MEAN CORPUSCULAR HEMOGLOBIN 30 pg (25-34); MEAN CORPUSCULAR HGB CONC 33 g/dL (32-36); MEAN CORPUSCULAR VOLUME 91 fL (80-99); MEAN PLATELET VOLUME 9.7 fL (9.0-12.2); MONOCYTES # (AUTO) 0.7 10^3/uL (0.0-1.0); MONOCYTES % (AUTO) 9 % (0-12); NEUTROPHILS # (AUTO) 5.8 10^3/uL (1.8-7.8); NEUTROPHILS % (AUTO) 74 % (42-75); PLATELET COUNT 142 10^3/uL (130-400); WHITE BLOOD COUNT 7.9 10^3/uL (4.3-11.0)
[2023-02-14 04:26] LABS: POTASSIUM 3.5 MMOL/L (3.6-5.0)
[2023-02-14 04:27] LABS: CALCIUM 8.2 MG/DL (8.5-10.1)
[2023-02-14 04:28] LABS: TOTAL PROTEIN 4.9 GM/DL (6.4-8.2)
[2023-02-14] MEDS: LEVOTHYROXINE 75 MCG TABLET PO SCH (06:12)
[2023-02-14] MEDS: EMPAGLIFLOZIN 10 MG TABLET PO SCH (08:42)
[2023-02-14] MEDS: SPIRONOLACTONE 25 MG (ALDACTONE) TAB PO SCH (08:42)
[2023-02-14] MEDS: CAPTOPRIL 25 MG TABLET PO SCH (08:43)
[2023-02-14] MEDS: carvediloL 12.5 MG TABLET PO SCH ×2 (08:43→18:03)
[2023-02-14] MEDS: ASPIRIN 81 MG CHEWABLE TABLET PO SCH (08:43)
[2023-02-14] MEDS: FUROSEMIDE INJECTION 40 MG/4 ML VIAL IV SCH (08:43)
--- NOTE | 2023-02-14 11:43 | Cardiology Progress Note ---
Subjective Date Seen by Provider: Feb 14, 2023 Time Seen by Provider: 11:42 Subjective/Events-last exam Patient was seen at bedside, laying down comfortably, reporting improvement in her symptoms Review of Systems General: No Chills, No Night Sweats; Fatigue; No Malaise, No Appetite, No Other HEENT: No Head Aches, No Visual Changes, No Eye Pain, No Ear Pain, No Dysp hasia, No Sinus Congestion, No Post Nasal Drip, No Sore Throat, No Other Pulmonary: Dyspnea; No Cough, No Pleuritic Chest Pain, No Other Cardiovascular: No: Chest Pain, Palpitations, Orthopnea, Paroxysmal Noc. Dyspnea, Edema, Lt Headedness, Other Focused Exam Lactate Level 02/12/23 07:59: Lactic Acid Level 1.25 Objective-Cardiology Exam Last Set of Vital Signs Vital Signs 02/14/23 02/14/23 08:34 10:37 Temp 36.7 Pulse 75 Resp 18 B/P (MAP) 140/78 (98) Pulse Ox 93 O2 Delivery Room Air O2 Flow Rate 0.00 I&O Intake and Output 02/13/23 23:59 Intake Total 1450 ml Output Total 2100 ml Balance -650 ml Intake Oral 1450 ml Output Urine Total 2100 ml General: Alert, Cooperative HEENT: Atraumatic, PERRLA Neck: Supple Lungs: Normal Air Movement, Other (Bilateral wet rales) Heart: Regular Rate, Normal S1, Normal S2 Abdomen: Normal Bowel Sounds Extremities: No Clubbing, No Cyanosis Skin: No Rashes, No Breakdown Neuro: Normal Speech Results Lab Laboratory Tests 02/14/23 03:54 A/P-Cardiology Admission Diagnosis Congestive heart failure Coronary artery disease Hypertension Hyperlipidemia Assessment/Plan Congestive heart failure, acute left ventricular systolic dysfunction, ischemic cardiomyopathy. 2D echo done on February 12, 2023 with dilated left ventricle, ejection fraction 25 to 30%, moderate to severe mitral regurgitation, PA pressure 45 to 50 mmHg Continue with diuresis. Maintained on captopril and Coreg, adding Jardiance and Aldactone Repeat chest x-ray and monitor Hypokalemia, replace and monitor Defer management to primary care team Coronary artery disease, unable to provide history but overall appears to be stable Mild elevation in troponin, type II myocardial infarction secondary to cardiomyopathy. Conservative management is recommended no intervention is recommended Hypertension, tolerating current medication, continue to monitor Hyperlipidemia, monitor lipids Extensive history of allergy to medication Dementia DOMINIC LOZANO MD Feb 14, 2023 11:43
[2023-02-14] MEDS: ENOXAPARIN 40 MG/0.4 ML SYRINGE SC SCH (14:45)
--- NOTE | 2023-02-14 15:49 | Physical Therapy Evaluation ---
PT Evaluation-General Medical Diagnosis Admission Date Feb 12, 2023 at 11:15 Medical Diagnosis: Acute exacerbation of CHF Onset Date: Feb 12, 2023 Therapy Diagnosis Therapy Diagnosis: Gait deficit Precautions Precautions/Isolations: Fall Prevention, Standard Precautions Weight Bear Status Right Lower Extremity: Right Full Weight Bearing Left Lower Extremity: Left Full Weight Bearing Referral Physician: Dr. Cohen Reason for Referral: Evaluation/Treatment Medical History Reviewed History: Yes Social History Home: Single Level Current Living Status: Other Family Patient is mildly confused about her current domicile. She reports she was living in her own home, then was moved to an apartment, but now thinks she lives with her son, however cannot recall. Prior Prior Level of Function SCALE: Activities may be completed with or without assistive devices. 6-Fruyucjrpk-pheljbe completes the activity by him/herself with no assistance from a helper. 5-Set-up or Clean-up Assistance-helper sets up or cleans up; patient completes activity. [place] assists only prior to or following the activity. 4-Supervision or Touching Assistance-helper provides verbal cues and/or touching/steadying and/or contact guard assistance as patient completes activity. Assistance may be provided throughout the activity or intermittently. 3-Partial/Moderate Assistance-helper does LESS THAN HALF the effort. [place] lifts, holds or supports trunk or limbs, but provides less than half the effort. 2-Substantial/Maximal Assistance-helper does MORE THAN HALF the effort. [place] lifts or holds trunk or limbs and provides more than half the effort. 7-Vtnowzyio-qqadtb does ALL the effort. Patient does none of the effort to complete the activity. Or, the assistance of 2 or more helpers is required for the patient to complete the activity. If activity was not attempted, code reason: 7-Patient Refused. 9-Not Applicable-not attempted and the patient did not perform the activity before the current illness, exacerbation or injury. 10-Not Attempted due to Environmental Limitations-(lack of equipment, weather restraints, etc.). 88-Not Attempted due to Medical Conditions or Safety Concerns. Bed Mobility: 6 Transfers (B,C,W/C): 6 Gait: 6 Indoor Mobility (Ambulation): Independent Stairs: Unknown Prior Devices Use: None Patient reports she did not use any assistive devices prior to admit. PT Evaluation-Current Subjective Patient lying supine in bed with HOB elevated fully upon PT arrival, initially a greeable to treatment but then reports she just wants to lie down. Rates pain currently at 0/10. Objective Patient Orientation: Person, Place Attachments: Oxygen, Ellis Catheter, IV ROM/Strength ROM Lower Extremities WFLs BLEs all planes Strength Lower Extremities 3+/5 BLEs all planes Sensory Vision: Wears Glasses Hearing: Impaired Sensation Right Lower Extremit: Intact Sensation Left Lower Extremity: Intact Transfers Roll Left to Right (QC): 2 Sit to Lying (QC): 2 Lying to Sitting/Side of Bed(Q: 2 Sit to Stand (QC): 2 Gait Does the Patient Walk?: No and Walking Goal IS indicated Balance Sitting Static: Poor Sitting Dynamic: Poor Standing Static: Poor Standing Dynamic: Poor Assessment/Needs Patient tolerated treatment poorly. She is very ALAT[place] and demonstrates a significant accentuated thoracic kyphosis with head forward position. Patient requires max A for all bed mobility and transfers. Patient was able to take a few steps towards the HOB. Patient in bed post treatment with all needs met, nursing notified, call light in hand. Rehab Potential: Fair Equipment Needs FWW PT Senior Care Goals Central Office Maintainer Goals PT Senior Care Goals Time Frame: Mar 17, 2023 Roll Left & Right (QC): 4 Sit to Lying (QC): 4 Lying-Sitting on Side/Bed(QC): 4 Sit to Stand (QC): 4 Chair/Qhi-ly-Biadl Xfer(QC): 4 Toilet Transfer (QC): 4 Does the Patient Walk: Yes Walk 10 feet (QC): 4 Walk 50ft with 2 Turns (QC): 4 Walk 150 ft (QC): 3 PT Plan Problem List Problem List: Activity Tolerance, Functional Strength, Safety, Balance, Gait, Transfer, Bed Mobility, ROM Treatment/Plan Treatment Plan: Continue Plan of Care Treatment Plan: Bed Mobility, Education, Functional Activity Ken, Functional Strength, Group Therapy, Gait, Safety, Therapeutic Exercise, Transfers Treatment Duration: Mar 17, 2023 Frequency: 6 times per week Estimated Hrs Per Day: .25 hour per day Patient and/or Family Agrees t: Yes Safety Risks/Education Patient Education: Gait Training, Transfer Techniques Teaching Recipient: Patient Teaching Methods: Demonstration, Discussion Response to Teaching: Verbalize Understanding, Reinforcement Needed Time Time In: 1510 Time Out: 1525 DATE: Feb 14, 2023 Total Billed Treatment Time: 15 Total Billed Treatment Visit, HAMIDA MCMAHAN PT Feb 14, 2023 15:49
--- NOTE | 2023-02-14 17:58 | Progress Note ---
Subjective Subjective/Events-last exam Patient states that she is feeling better this yesterday. Denies any shortness of breath or chest pain. Tolerating PO diet Called facility and patient was able to do ADLs wit assist x1 prior to admission. Review of Systems General: Fatigue Pulmonary: No Dyspnea, No Cough Cardiovascular: No: Chest Pain, Palpitations, Edema Gastrointestinal: No: Nausea, Vomiting, Abdominal Pain, Diarrhea, Constipation Neurological: Weakness, Incoordination Focused Exam Lactate Level 02/12/23 07:59: Lactic Acid Level 1.25 Objective Exam Last Set of Vital Signs Vital Signs Date Time Temp Pulse Resp B/P (MAP) Pulse Ox O2 Delivery O2 Flow Rate FiO2 02/14/23 16:16 36.7 73 18 133/61 (85) 92 Room Air 02/14/23 10:37 0.00 Capillary Refill : I&O Intake and Output 02/14/23 00:00 Intake Total 1450 ml Output Total 2100 ml Balance -650 ml Intake Oral 1450 ml Output Urine Total 2100 ml General: Alert, No Acute Distress Lungs: Clear to Auscultation, Normal Air Movement Heart: Regular Rate, No Murmurs Abdomen: Normal Bowel Sounds, Soft, No Tenderness, No Masses Extremities: No Edema, No Tenderness/Swelling Neuro: Normal Speech Results/Procedures Lab Laboratory Tests 02/14/23 03:54: White Blood Count 7.9, Red Blood Count 3.45L, Hemoglobin 10.5L, Hematocrit 32L, Mean Corpuscular Volume 91, Mean Corpuscular Hemoglobin 30, Mean Corpuscular Hemoglobin Concent 33, Red Cell Distribution Width 15.2H, Platelet Count 142, Mean Platelet Volume 9.7, Immature Granulocyte % (Auto) 0, Neutrophils (%) (Auto) 74, Lymphocytes (%) (Auto) 14, Monocytes (%) (Auto) 9, Eosinophils (%) (A uto) 2, Basophils (%) (Auto) 1, Neutrophils # (Auto) 5.8, Lymphocytes # (Auto) 1.1, Monocytes # (Auto) 0.7, Eosinophils # (Auto) 0.2, Basophils # (Auto) 0.0, Immature Granulocyte # (Auto) 0.0, Sodium Level 135, Potassium Level 3.5L, Ch loride Level 101, Carbon Dioxide Level 25, Anion Gap 9, Blood Urea Nitrogen 31H, Creatinine 1.00, Estimat Glomerular Filtration Rate 57, BUN/Creatinine Ratio 31, Glucose Level 99, Calcium Level 8.2L, Corrected Calcium 9.0, Total Bilirubin 1.0, Aspartate Amino Transf (AST/SGOT) 25, Alanine Aminotransferase (ALT/SGPT) 38, Alkaline Phosphatase 80, Total Protein 4.9L, Albumin 3.0L Microbiology 02/12/23 Blood Culture - Preliminary, Resulted No growth Assessment/Plan Assessment/Plan Assessment & Plan A/P Acute Respiratory Failure Acute systolic CHF Severe Mitrial Valve Regurgitation - EF 25-30%, Cardiology consulted, appreciate recommendations, IV lasix, Will titrate oxygen as tolerated, Strict I/Os 02/14: On RA this AM, D/c ryan catheter, focus on PT CAD HTN HLD hypothyroidism - 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
[2023-02-15] VITALS (7 sets, daily range): BP systolic 119–145; BP diastolic 62–75
[2023-02-15] MEDS: RT-Ipratropium/Albuterol NEB 3 ML VIAL INH SCH ×3 (02:35→21:23)
[2023-02-15 05:38] LABS: BASOPHILS % (AUTO) 1 % (0-10); EOSINOPHILS # (AUTO) 0.3 10^3/uL (0.0-0.3); EOSINOPHILS % (AUTO) 4 % (0-10); HEMATOCRIT 34 % (35-52); HEMOGLOBIN 11.4 g/dL (11.5-16.0); LYMPHOCYTES # (AUTO) 1.3 10^3/uL (1.0-4.0); LYMPHOCYTES % (AUTO) 17 % (12-44); MEAN CORPUSCULAR HEMOGLOBIN 30 pg (25-34); MEAN CORPUSCULAR HGB CONC 33 g/dL (32-36); MEAN CORPUSCULAR VOLUME 91 fL (80-99); MEAN PLATELET VOLUME 10.1 fL (9.0-12.2); MONOCYTES # (AUTO) 0.6 10^3/uL (0.0-1.0); MONOCYTES % (AUTO) 9 % (0-12); NEUTROPHILS # (AUTO) 5.1 10^3/uL (1.8-7.8); NEUTROPHILS % (AUTO) 70 % (42-75); PLATELET COUNT 192 10^3/uL (130-400); WHITE BLOOD COUNT 7.4 10^3/uL (4.3-11.0)
[2023-02-15 05:57] LABS: ALBUMIN 3.1 GM/DL (3.2-4.5); BILIRUBIN,TOTAL 0.9 MG/DL (0.1-1.0); CALCIUM 8.6 MG/DL (8.5-10.1); CREATININE SERUM 1.13 MG/DL (0.60-1.30); POTASSIUM 3.7 MMOL/L (3.6-5.0); TOTAL PROTEIN 5.2 GM/DL (6.4-8.2)
[2023-02-15] MEDS: LEVOTHYROXINE 75 MCG TABLET PO SCH (06:07)
--- NOTE | 2023-02-15 08:29 | Cardiology Progress Note ---
Subjective Date Seen by Provider: Feb 15, 2023 Time Seen by Provider: 08:28 Subjective/Events-last exam Patient was seen at bedside, laying down comfortably No new complaint Objective-Cardiology Exam Last Set of Vital Signs Vital Signs 02/15/23 02/15/23 07:09 07:41 Temp 36.0 Pulse 68 Resp 18 B/P (MAP) 138/73 (94) Pulse Ox 93 O2 Delivery Room Air O2 Flow Rate 0.00 I&O Intake and Output 02/15/23 00:00 Intake Total 2600 ml Output Total 5850 ml Balance -3250 ml Intake Oral 2600 ml Output Urine Total 5850 ml General: Alert, Cooperative, No Acute Distress HEENT: Atraumatic, PERRLA Neck: Supple Lungs: Clear to Auscultation, Normal Air Movement Heart: Regular Rate, No Murmurs Abdomen: Normal Bowel Sounds, Soft, No Tenderness, No Masses Extremities: No Edema, No Tenderness/Swelling Skin: No Rashes, No Breakdown Neuro: Normal Speech Psych/Mental Status: Mood NL Results Lab Laboratory Tests 02/15/23 05:25 A/P-Cardiology Admission Diagnosis Congestive heart failure Coronary artery disease Hypertension Hyperlipidemia Assessment/Plan Congestive heart failure, acute left ventricular systolic dysfunction, ischemic cardiomyopathy. 2D echo done on February 12, 2023 with dilated left ventricle, ejection fraction 25 to 30%, moderate to severe mitral regurgitation, PA pressure 45 to 50 mmHg Continue with diuresis. Maintained on captopril and Coreg, adding Jardiance and Aldactone Repeat chest x-ray and monitor Hypokalemia, replace and monitor Defer management to primary care team Coronary artery disease, unable to provide history but overall appears to be stable Mild elevation in troponin, type II myocardial infarction secondary to cardiomyopathy. Conservative management is recommended no intervention is recommended Hypertension, tolerating current medication, continue to monitor Hyperlipidemia, monitor lipids Extensive history of allergy to medication Dementia DOMINIC LOZANO MD Feb 15, 2023 08:29
[2023-02-15] MEDS: EMPAGLIFLOZIN 10 MG TABLET PO SCH (08:36)
[2023-02-15] MEDS: carvediloL 12.5 MG TABLET PO SCH ×2 (08:36→17:52)
[2023-02-15] MEDS: CAPTOPRIL 25 MG TABLET PO SCH (08:36)
[2023-02-15] MEDS: SPIRONOLACTONE 25 MG (ALDACTONE) TAB PO SCH (08:36)
[2023-02-15] MEDS: FUROSEMIDE INJECTION 40 MG/4 ML VIAL IV SCH (08:36)
[2023-02-15] MEDS: ASPIRIN 81 MG CHEWABLE TABLET PO SCH (08:36)
--- NOTE | 2023-02-15 10:51 | Diagnostic Imaging Report ---
INDICATION: Dyspnea. TECHNIQUE: PA and lateral chest obtained at 09:32 a.m. and compared to 02/12/2023. FINDINGS: There is cardiomegaly and post-sternotomy change. There is central vascular congestion with diffuse interstitial edema and bibasilar infiltrates. There are unchanged bilateral pleural effusions. IMPRESSION: Findings compatible with CHF with unchanged cardiomegaly and central vascular congestion with edema and bibasilar infiltrates and bilateral pleural effusions. Dictated by: Dictated on workstation # [id number]
--- NOTE | 2023-02-15 11:37 | Progress Note ---
Subjective Subjective Date Seen by Provider: Feb 15, 2023 Time Seen by Provider: 10:25 No overnight events, Ryan still in place, will remove today. Patient reports being thirsty. Review of Systems General: Fatigue HEENT: No Head Aches, No Visual Changes, No Eye Pain, No Ear Pain, No Dysphasia, No Sinus Congestion, No Post Nasal Drip, No Sore Throat, No Other Pulmonary: No Dyspnea, No Cough Cardiovascular: No: Chest Pain, Palpitations, Edema Gastrointestinal: No: Nausea, Vomiting, Abdominal Pain, Diarrhea, Constipation Neurological: Weakness, Incoordination Objective Exam Vital Signs Vital Signs Date Time Temp Pulse Resp B/P (MAP) Pulse Ox O2 Delivery O2 Flow Rate FiO2 02/15/23 08:24 36.0 68 93 21 02/15/23 08:00 Room Air 02/15/23 07:41 36.0 68 18 138/73 (94) 93 Room Air 02/15/23 07:09 95 Room Air 0.00 02/15/23 03:36 36.1 68 18 135/70 (91) 93 Room Air 0.00 0.00 02/15/23 02:35 Room Air 02/14/23 23:17 36.3 67 18 127/67 (87) 94 Room Air 0.00 0.00 02/14/23 22:14 Room Air 02/14/23 20:35 Room Air 02/14/23 19:34 36.3 77 18 139/75 (96) 93 Room Air 02/14/23 18:49 92 Room Air 02/14/23 16:16 36.7 73 18 133/61 (85) 92 Room Air 02/14/23 16:15 36.7 73 18 133/61 (85) Room Air 02/14/23 14:57 36.4 78 17 116/58 (77) 92 Room Air 02/14/23 13:30 73 02/14/23 12:00 65 25 115/80 (93) 93 Room Air I & O 02/15/23 07:00 Intake Total 2800 ml Output Total 6100 ml Balance -3300 ml General Appearance: No Apparent Distress, Cachetic, Thin Eyes: Bilateral Eye Normal Inspection, Bilateral Eye PERRL, Bilateral Eye EOMI HEENT: Pharynx Normal; No Scleral Icterus (L), No Scleral Icterus (R) Neck: Full Range of Motion, Normal Inspection, Non Tender, Supple; No Tender Lateral, No Tender Midline Respiratory: Chest Non Tender, No Accessory Muscle Use, No Respiratory Distress, Decreased Breath Sounds Cardiovascular: Regular Rate, Rhythm, Normal Peripheral Pulses Gastrointestinal: No Pulsatile Mass, Non Tender, Soft Rectal: Deferred Back: Normal Inspection, No CVA Tenderness, No Vertebral Tenderness Extremity: Normal Capillary Refill, No Calf Tenderness, Pedal Edema Neurologic/Psychiatric: Alert, Oriented x3, No Motor/Sensory Deficits, Normal Mood/Affect Skin: Warm/Dry, Pallor Lymphatic: No Adenopathy Results Lab Laboratory Tests 02/15/23 05:25: White Blood Count 7.4, Red Blood Count 3.79L, Hemoglobin 11.4L, Hematocrit 34L, Mean Corpuscular Volume 91, Mean Corpuscular Hemoglobin 30, Mean Corpuscular Hemoglobin Concent 33, Red Cell Distribution Width 15.2H, Platelet Count 192, Mean Platelet Volume 10.1, Immature Granulocyte % (Auto) 0, Neutrophils (%) (Auto) 70, Lymphocytes (%) (Auto) 17, Monocytes (%) (Auto) 9, Eosinophils (%) (Auto) 4, Basophils (%) (Auto) 1, Neutrophils # (Auto) 5.1, Lymphocytes # (Auto) 1.3, Monocytes # (Auto) 0.6, Eosinophils # (Auto) 0.3, Basophils # (Auto) 0.0, Immature Granulocyte # (Auto) 0.0, Sodium Level 139, Potassium Level 3.7, Chloride Level 105, Carbon Dioxide Level 26, Anion Gap 8, Blood Urea Nitrogen 29H, Creatinine 1.13, Estimat Glomerular Filtration Rate 49, BUN/Creatinine Ratio 26, Glucose Level 88, Calcium Level 8.6, Corrected Calcium 9.3, Total Bilirubin 0.9, Aspartate Amino Transf (AST/SGOT) 19, Alanine Aminotransferase (ALT/SGPT) 32, Alkaline Phosphatase 79, Total Protein 5.2L, Albumin 3.1L Microbiology 02/12/23 Blood Culture - Preliminary, Resulted No growth Assessment/Plan Assessment/Plan Admission Faith Wall is an 82 y/o female with a PMH of HFrEF (25-30%), dementia and CAD admitted for acute respiratory distress. Acute Respiratory Failure Acute systolic CHF Severe Mitrial Valve Regurgitation - EF 25-30%,S/P IV 40mg Lasix, Strict I/Os - Cardiology recommended lasix and repeat CXR. -Repeat CXR unchanged from 02/12 PLAN >lasix 40mg Qday > ryan out > work with PT CAD HTN HLD hypothyroidism - Continue SLEEVE BASTER meds Dementia - Seems to be close to baseline hypokalemia - Replace and repeat BMP in AM Julio Lopze MS4 Admission Status: Inpatient Order (span 2 midnights) Problems: (1) Dementia Qualifiers: Qualified Codes: F03.94 - Unspecified dementia, unspecified severity, with anxiety (2) Hypoxia (3) Acute exacerbation of CHF (congestive heart failure) Qualifiers: Qualified Codes: I50.9 - Heart failure, unspecified (4) Essential hypertension (5) Dyspnea Qualifiers: Qualified Codes: R06.02 - Shortness of breath Supervisory-Addendum Brief Verification & Attestation Participated in pt care: history, physical Personally performed: exam, history Care discussed with: Medical Student Procedures: n/a Verification and Attestation of Medical Student E/M Service A medical student performed and documented this service in my presence. I reviewed and verified all information documented by the medical student and made modifications to such information, when appropriate. I personally performed the physical exam and medical decision making. Katlin Daniels, Feb 15, 2023,16:10 Medically stable, She is not willing to work with PT this AM. Discussed the importance of working with PT, Rhonda herrera today. JULIO LOPEZ Feb 15, 2023 11:37 KATLIN DANIELS MD Feb 15, 2023 16:12
--- NOTE | 2023-02-15 11:42 | Physical Therapy Daily Note ---
PT Daily Note-Current Subjective Patient requests commode use. Pain Section J - Health Conditions 1. Rarely or not at all 2. Occasionally 3. Frequently 4. Almost constantly 8. Unable to answer Pain Effect on Sleep: 8 Pain Interference with Therapy: 8 Pain Interference w/Day-to-Day: 8 Transfers SCALE: Activities may be completed with or without assistive devices. 5-Fwceqnipyc-gbbnsli completes the activity by him/herself with no assistance from a helper. 5-Set-up or Clean-up Assistance-helper sets up or cleans up; patient completes activity. [place] assists only prior to or following the activity. 4-Supervision or Touching Assistance-helper provides verbal cues and/or touching/steadying and/or contact guard assistance as patient completes activity. Assistance may be provided throughout the activity or intermittently. 3-Partial/Moderate Assistance-helper does LESS THAN HALF the effort. [place] lifts, holds or supports trunk or limbs, but provides less than half the effort. 2-Substantial/Maximal Assistance-helper does MORE THAN HALF the effort. [place] lifts or holds trunk or limbs and provides more than half the effort. 6-Qnikvklru-abvyve does ALL the effort. Patient does none of the effort to complete the activity. Or, the assistance of 2 or more helpers is required for the patient to complete the activity. If activity was not attempted, code reason: 7-Patient Refused. 9-Not Applicable-not attempted and the patient did not perform the activity before the current illness, exacerbation or injury. 10-Not Attempted due to Environmental Limitations-(lack of equipment, weather restraints, etc.). 88-Not Attempted due to Medical Conditions or Safety Concerns. Lying to Sitting/Side of Bed(Q: 3 Sit to Stand (QC): 3 Chair/Mxo-as-Dnuqv Xfer(QC): 3 Toilet Transfer (QC): 3 Weight Bearing Right Lower Extremity: Right Full Weight Bearing Left Lower Extremity: Left Full Weight Bearing Gait Training Distance: 10' Walk 10 feet (QC): 3 Gait Assistive Device: FWW kyphotic posture/slow gait sequence Assessment Patient is [facility] a [facility] and required assistance prior to this admit. Patient tolerated treatment well and is up in recliner with needs met. Patient very [place] and requires redirection to remain on task. PT [facility]iary Goals Parking Meter Servicer Goals PT [facility] Goals Time Frame: Mar 17, 2023 Roll Left & Right (QC): 4 Sit to Lying (QC): 4 Lying-Sitting on Side/Bed(QC): 4 Sit to Stand (QC): 4 Chair/Sui-fn-Fqonl Xfer(QC): 4 Toilet Transfer (QC): 4 Does the Patient Walk: Yes Walk 10 feet (QC): 4 Walk 50ft with 2 Turns (QC): 4 Walk 150 ft (QC): 3 PT Plan Treatment/Plan Treatment Plan: Continue Plan of Care Treatment Plan: Bed Mobility, Education, Functional Activity Ken, Functional Strength, Group Therapy, Gait, Safety, Therapeutic Exercise, Transfers Treatment Duration: Mar 17, 2023 Frequency: 6 times per week Estimated Hrs Per Day: .25 hour per day Patient and/or Family Agrees t: Yes Time Time In: 1120 Time Out: 1133 DATE: Feb 15, 2023 Total Billed Treatment Time: 13 Total Billed Treatment 1 visit FA 13 min ALCIDES GERBER PT Feb 15, 2023 11:42
[2023-02-15] MEDS: ENOXAPARIN 40 MG/0.4 ML SYRINGE SC SCH (14:36)
[2023-02-16 04:00] VITALS: BP 121/72
[2023-02-16] MEDS: LEVOTHYROXINE 75 MCG TABLET PO SCH (06:22)
[2023-02-16] MEDS ORDERED: RT-Ipratropium/Albuterol NEB 3 ML VIAL INH SCH (08:00)
--- NOTE | 2023-02-16 08:00 | Physical Therapy Daily Note ---
PT Daily Note-Current Subjective Patient agrees to therapy. Pain Section J - Health Conditions 1. Rarely or not at all 2. Occasionally 3. Frequently 4. Almost constantly 8. Unable to answer Pain Effect on Sleep: 8 Pain Interference with Therapy: 8 Pain Interference w/Day-to-Day: 8 Transfers SCALE: Activities may be completed with or without assistive devices. 7-Lwzabswbce-ddpncyc completes the activity by him/herself with no assistance from a helper. 5-Set-up or Clean-up Assistance-helper sets up or cleans up; patient completes activity. [place] assists only prior to or following the activity. 4-Supervision or Touching Assistance-helper provides verbal cues and/or touching/steadying and/or contact guard assistance as patient completes activity. Assistance may be provided throughout the activity or intermittently. 3-Partial/Moderate Assistance-helper does LESS THAN HALF the effort. [place] lifts, holds or supports trunk or limbs, but provides less than half the effort. 2-Substantial/Maximal Assistance-helper does MORE THAN HALF the effort. [place] lifts or holds trunk or limbs and provides more than half the effort. 1-Uosxjduvx-zymmya does ALL the effort. Patient does none of the effort to complete the activity. Or, the assistance of 2 or more helpers is required for the patient to complete the activity. If activity was not attempted, code reason: 7-Patient Refused. 9-Not Applicable-not attempted and the patient did not perform the activity before the current illness, exacerbation or injury. 10-Not Attempted due to Environmental Limitations-(lack of equipment, weather restraints, etc.). 88-Not Attempted due to Medical Conditions or Safety Concerns. Lying to Sitting/Side of Bed(Q: 3 Sit to Stand (QC): 4 Chair/Jrf-hh-Szbar Xfer(QC): 4 Toilet Transfer (QC): 4 Weight Bearing Right Lower Extremity: Right Full Weight Bearing Left Lower Extremity: Left Full Weight Bearing Gait Training Distance: 25' x 2 Walk 10 feet (QC): 4 Gait Assistive Device: FWW slow, functional gait sequence Assessment Patient up in recliner with needs met. Patient is min to CGA with all mobility. Breakfast in situ PT Alf Goals Platform Software Engineer Goals PT Platform Software Engineer Goals Time Frame: Mar 17, 2023 Roll Left & Right (QC): 4 Sit to Lying (QC): 4 Lying-Sitting on Side/Bed(QC): 4 Sit to Stand (QC): 4 Chair/Tjr-yq-Sffvy Xfer(QC): 4 Toilet Transfer (QC): 4 Does the Patient Walk: Yes Walk 10 feet (QC): 4 Walk 50ft with 2 Turns (QC): 4 Walk 150 ft (QC): 3 PT Plan Treatment/Plan Treatment Plan: Modify Plan, see comments Treatment Plan: Bed Mobility, Education, Functional Activity Ken, Functional Strength, Group Therapy, Gait, Safety, Therapeutic Exercise, Transfers Treatment Duration: Mar 17, 2023 Frequency: 5 times per week Estimated Hrs Per Day: .25 hour per day Patient and/or Family Agrees t: Yes Time Time In: 740 Time Out: 752 DATE: Feb 16, 2023 Total Billed Treatment Time: 12 Total Billed Treatment 1 visit FA 12 min ALCIDES GERBER PT Feb 16, 2023 08:00
[2023-02-16 08:37] VITALS: BP 134/74
[2023-02-16] MEDS: ASPIRIN 81 MG CHEWABLE TABLET PO SCH (08:47)
[2023-02-16] MEDS: carvediloL 12.5 MG TABLET PO SCH (08:47)
[2023-02-16] MEDS: FUROSEMIDE INJECTION 40 MG/4 ML VIAL IV SCH (08:47)
[2023-02-16] MEDS: CAPTOPRIL 25 MG TABLET PO SCH (08:47)
[2023-02-16] MEDS: EMPAGLIFLOZIN 10 MG TABLET PO SCH (08:47)
[2023-02-16] MEDS: SPIRONOLACTONE 25 MG (ALDACTONE) TAB PO SCH (08:47)
--- NOTE | 2023-02-16 10:09 | Cardiology Progress Note ---
Subjective Date Seen by Provider: Feb 16, 2023 Time Seen by Provider: 10:09 Subjective/Events-last exam Patient was seen at bedside, sitting comfortably, feeling better Review of Systems General: No Chills, No Night Sweats; Fatigue; No Malaise, No Appetite, No Other HEENT: No Head Aches, No Visual Changes, No Eye Pain, No Ear Pain, No Dysphasia, No Sinus Congestion, No Post Nasal Drip, No Sore Throat, No Other Pulmonary: Dyspnea; No Cough, No Pleuritic Chest Pain, No Other Cardiovascular: No: Chest Pain, Palpitations, Orthopnea, Paroxysmal Noc. Dyspnea, Edema, Lt Headedness, Other Objective-Cardiology Exam Last Set of Vital Signs Vital Signs 02/15/23 02/16/23 02/16/23 08:24 07:36 08:37 Temp 36.1 Pulse 67 Resp 18 B/P (MAP) 134/74 (94) Pulse Ox 93 O2 Delivery Room Air O2 Flow Rate 0.00 FiO2 21 I&O Intake and Output 02/16/23 00:00 Intake Total 2190 ml Output Total 6900 ml Balance -4710 ml Intake Oral 2190 ml Output Urine Total 6900 ml # Voids 2 General: Alert, Cooperative, No Acute Distress HEENT: Atraumatic, PERRLA Neck: Supple Lungs: Clear to Auscultation, Normal Air Movement Heart: Regular Rate, No Murmurs Abdomen: Normal Bowel Sounds, Soft, No Tenderness, No Masses Extremities: No Edema, No Tenderness/Swelling Skin: No Rashes, No Breakdown Neuro: Normal Speech Psych/Mental Status: Mood NL A/P-Cardiology Admission Diagnosis Congestive heart failure Coronary artery disease Hypertension Hyperlipidemia Assessment/Plan Congestive heart failure, acute left ventricular systolic dysfunction, ischemic cardiomyopathy. 2D echo done on February 12, 2023 with dilated left ventricle, ejection fraction 25 to 30%, moderate to severe mitral regurgitation, PA pressure 45 to 50 mmHg Continue with diuresis. Maintained on captopril and Coreg, Jardiance and Aldactone Continue to monitor Hypokalemia, replace and monitor Defer management to primary care team Coronary artery disease, unable to provide history but overall appears to be stable Mild elevation in troponin, type II myocardial infarction secondary to cardiomyopathy. Conservative management is recommended no intervention is recommended Hypertension, tolerating current medication, continue to monitor Hyperlipidemia, monitor lipids Extensive history of allergy to medication Dementia DOMINIC LOZANO MD Feb 16, 2023 10:09
--- NOTE | 2023-02-16 12:14 | Discharge Summary ---
Diagnosis/Chief Complaint Date of Admission Feb 12, 2023 at 11:15 Date of Discharge Discharge Date: Feb 16, 2023 Discharge Diagnosis Kiara Wall is an 82 y/o female with a PMH of HFrEF (25-30%), dementia and CAD admitted for acute respiratory distress. Acute Respiratory Failure Acute systolic CHF Severe Mitrial Valve Regurgitation - EF 25-30%,S/P IV 40mg Lasix, Strict I/Os - Cardiology recommended lasix and repeat CXR. -Repeat CXR unchanged from 02/12 Discharge Summary Discharge Physical Examination Allergies: Coded Allergies: NEIL Inhibitors (Verified Allergy, Unknown, 02/12/23) Iodinated Contrast Media (Verified Allergy, Unknown, 02/12/23) Sulfa (Sulfonamide Antibiotics) (Verified Allergy, Unknown, 02/12/23) clarithromycin (Verified Allergy, Unknown, 02/12/23) codeine (Verified Allergy, Unknown, 02/12/23) diazepam (Verified Allergy, Unknown, 02/12/23) diphenhydramine (Verified Allergy, Unknown, 02/12/23) fentanyl (Verified Allergy, Unknown, 02/12/23) garlic (Verified Allergy, Unknown, 02/12/23) hydrocodone (Verified Allergy, Unknown, 02/12/23) meloxicam (Verified Allergy, Unknown, 02/12/23) tositumomab (Verified Allergy, Unknown, 02/12/23) Vitals & I&Os Vital Signs Date Time Temp Pulse Resp B/P (MAP) Pulse Ox O2 Delivery O2 Flow Rate FiO2 02/16/23 15:25 36.6 75 16 111/53 (72) 93 Room Air 02/16/23 07:36 0.00 02/15/23 08:24 21 General Appearance: Alert, Oriented X3, Cooperative Respiratory: Clear to Auscultation Cardiovascular: Regular Rate Hospital Course Was the Problem List Reviewed?: Yes Kiara Wall is an 82 year old female with a past medical history of HTN, CHF, dementia, CAD, and hypothyroidism. She presented to the ED on 02/12/23 with shortness of breath. In the ED her BNP was 57,000+ and her chest xray was significant for vascular congestion, edema, bibasilar infiltrates, and large bilateral pleural effusions. She was diagnosed as being in an exacerbation of her CHF and was subsequently admitted. Dr. Moffett was consulted on the and he started her on IV lasix and had a 2D echo done that showed EF 25-30% with moderate-severe mitral regurgitation, mild-moderate aortic regurgitation, dilated LV, and PA pressure 45-50mmHg. On 02/13/23 she was started on Captopril, Coreg, Jardiance, and Aldactone. Her initial troponin on 02/12 was negative however repeat on 02/13 showed an upward trend at 0.043. Dr. Moffett attributed this to a likely type II [place] secondary to her cardiomyopathy. Conservative management was recommended over intervention. She remained stable over the next several days. Repeat chest xray on 02/15/23 showed no changes from admission imaging. Given her conditions being stable through her hospital stay and no need for further intervention she is ready for discharge today, 02/16/23. Labs (last 24 hrs) Laboratory Tests 02/12/23 07:59: White Blood Count 9.8, Red Blood Count 4.51, Hemoglobin 13.6, Hematocrit 42, Mean Corpuscular Volume 93, Mean Corpuscular Hemoglobin 30, Mean Corpuscular Hem oglobin Concent 33, Red Cell Distribution Width 15.2H, Platelet Count 210, Mean Platelet Volume 9.2, Immature Granulocyte % (Auto) 0, Neutrophils (%) (Auto) 89H , Lymphocytes (%) (Auto) 7L, Monocytes (%) (Auto) 3, Eosinophils (%) (Auto) 0, Basophils (%) (Auto) 0, Neutrophils # (Auto) 8.8H, Lymphocytes # (Auto) 0.7L, Monocytes # (Auto) 0.3, Eosinophils # (Auto) 0.0, Basophils # (Auto) 0.0, Immature Granulocyte # (Auto) 0.0, Neutrophils % (Manual) 83, Lymphocytes % (Manual) 8, Monocytes % (Manual) 5, Eosinophils % (Manual) 0, Basophils % (Manual) 0, Band Neutrophils 4, Platelet Estimate NORMAL, Poikilocytosis SLIGHT, Acanthocytes SLIGHT, Sodium Level 136, Potassium Level 4.0, Chloride Level 98, Carbon Dioxide Level 23, Anion Gap 15H, Blood Urea Nitrogen 26H, Creatinine 0.96, Estimat Glomerular Filtration Rate 60, BUN/Creatinine Ratio 27, Glucose Level 168H, Lactic Acid Level 1.25, Calcium Level 9.3, Corrected Calcium 9.3, Magnesium Level 1.8, Total Bilirubin 0.9, Aspartate Amino Transf (AST/SGOT) 40H, Alanine Aminotransferase (ALT/SGPT) 63H, Alkaline Phosphatase 137H, Troponin I < 0.30, C-Reactive Protein < 0.30, Pro-B-Type Natriuretic Peptide 71247.0H, Total Protein 6.2L, Albumin 4.0 02/12/23 08:10: Influenza Type A (RT-PCR) Not Detected, Influenza Type B (RT-PCR) Not Detected, SARS-CoV-2 RNA (RT-PCR) Not Detected 02/12/23 09:00: Urine Color YELLOW, Urine Clarity CLEAR, Urine pH 5.5, Urine Specific [place] 1.025H, Urine Protein 2+H, Urine Glucose (UA) NEGATIVE, Urine Ketones NEGATIVE, Urine Nitrite NEGATIVE, Urine Bilirubin NEGATIVE, Urine Urobilinogen 0.2, Urine Leukocyte Esterase NEGATIVE, Urine RBC (Auto) TRACE-IH, Urine RBC RARE, Urine WBC 0-2, Urine Squamous Epithelial Cells NONE, Urine Crystals NONE, Urine Bacteria NEGATIVE, Urine Casts PRESENT, Urine Hyaline Casts 2-5H, Urine Mucus NEGATIVE, Urine Culture Indicated NO 02/13/23 04:19: White Blood Count 8.8, Red Blood Count 3.56L, Hemoglobin 10.7#L, Hematocrit 32L, Mean Corpuscular Volume 90, Mean Corpuscular Hemoglobin 30, Mean Corpuscular Hemoglobin Concent 33, Red Cell Distribution Width 15.1H, Platelet Count 148, Mean Platelet Volume 9.8, Immature Granulocyte % (Auto) 0, Neutrophils (%) (Auto) 80H, Lymphocytes (%) (Auto) 11L, Monocytes (%) (Auto) 8, Eosinophils (%) (Auto) 1, Basophils (%) (Auto) 0, Neutrophils # (Auto) 7.0, Lymphocytes # (Auto) 1.0, Monocytes # (Auto) 0.7, Eosinophils # (Auto) 0.1, Basophils # (Auto) 0.0, Immature Granulocyte # (Auto) 0.0, Sodium Level 140, Potassium Level 3.1L, Chloride Level 105, Carbon Dioxide Level 25, Anion Gap 10, Blood Urea Nitrogen 25H, Creatinine 0.88, Estimat Glomerular Filtration Rate 66, BUN/Creatinine Ratio 28, Glucose Level 87, Calcium Level 8.2L, Corrected Calcium 9.2, Total Bilirubin 1.1H, Aspartate Amino Transf (AST/SGOT) 23, Alanine Aminotransferase (ALT/SGPT) 40, Alkaline Phosphatase 78, Troponin I 0.043H, Total Protein 4.7L, Albumin 2.8L, B-Type Natriuretic Peptide 3536.4H, Thyroid Stimulating Hormone (TSH) 6.60H 02/14/23 03:54: White Blood Count 7.9, Red Blood Count 3.45L, Hemoglobin 10.5L, Hematocrit 32L, Mean Corpuscular Volume 91, Mean Corpuscular Hemoglobin 30, Mean Corpuscular Hemoglobin Concent 33, Red Cell Distribution Width 15.2H, Platelet Count 142, Mean Platelet Volume 9.7, Immature Granulocyte % (Auto) 0, Neutrophils (%) (Auto) 74, Lymphocytes (%) (Auto) 14, Monocytes (%) (Auto) 9, Eosinophils (%) (Auto) 2, Basophils (%) (Auto) 1, Neutrophils # (Auto) 5.8, Lymphocytes # (Auto) 1.1, Monocytes # (Auto) 0.7, Eosinophils # (Auto) 0.2, Basophils # (Auto) 0.0, Immature Granulocyte # (Auto) 0.0, Sodium Level 135, Potassium Level 3.5L, Chloride Level 101, Carbon Dioxide Level 25, Anion Gap 9, Blood Urea Nitrogen 31H, Creatinine 1.00, Estimat Glomerular Filtration Rate 57, BUN/Creatinine Ratio 31, Glucose Level 99, Calcium Level 8.2L, Corrected Calcium 9.0, Total Bilirubin 1.0, Aspartate Amino Transf (AST/SGOT) 25, Alanine Aminotransferase (ALT/SGPT) 38, Alkaline Phosphatase 80, Total Protein 4.9L, Albumin 3.0L 02/15/23 05:25: White Blood Count 7.4, Red Blood Count 3.79L, Hemoglobin 11.4L, Hematocrit 34L, Mean Corpuscular Volume 91, Mean Corpuscular Hemoglobin 30, Mean Corpuscular Hemoglobin Concent 33, Red Cell Distribution Width 15.2H, Platelet Count 192, Mean Platelet Volume 10.1, Immature Granulocyte % (Auto) 0, Neutrophils (%) (Auto) 70, Lymphocytes (%) (Auto) 17, Monocytes (%) (Auto) 9, Eosinophils (%) (Auto) 4, Basophils (%) (Auto) 1, Neutrophils # (Auto) 5.1, Lymphocytes # (Auto) 1.3, Monocytes # (Auto) 0.6, Eosinophils # (Auto) 0.3, Basophils # (Auto) 0.0, Immature Granulocyte # (Auto) 0.0, Sodium Level 139, Potassium Level 3.7, Chloride Level 105, Carbon Dioxide Level 26, Anion Gap 8, Blood Urea Nitrogen 29H, Creatinine 1.13, Estimat Glomerular Filtration Rate 49, BUN/Creatinine Ratio 26, Glucose Level 88, Calcium Level 8.6, Corrected Calcium 9.3, Total Bilirubin 0.9, Aspartate Amino Transf (AST/SGOT) 19, Alanine Aminotransferase (ALT/SGPT) 32, Alkaline Phosphatase 79, Total Protein 5.2L, Albumin 3.1L Microbiology 02/12/23 Blood Culture - Preliminary, Resulted No growth Pending Labs Microbiology Date/Time Source Procedure Growth Status 02/12/23 08:43 Peripheral Rt Forearm Blood Culture - Preliminary No growth Resulted 02/12/23 07:55 Peripheral Lt Ac Blood Culture - Preliminary No growth Resulted Laboratory Tests 02/12/23 07:59: White Blood Count 9.8, Red Blood Count 4.51, Hemoglobin 13.6, Hematocrit 42, Mean Corpuscular Volume 93, Mean Corpuscular Hemoglobin 30, Mean Corpuscular Hemoglobin Concent 33, Red Cell Distribution Width 15.2, Platelet Count 210, Mean Platelet Volume 9.2, Immature Granulocyte % (Auto) 0, Neutrophils (%) (Auto) 89, Lymphocytes (%) (Auto) 7, Monocytes (%) (Auto) 3, Eosinophils (%) (A uto) 0, Basophils (%) (Auto) 0, Neutrophils # (Auto) 8.8, Lymphocytes # (Auto) 0.7, Monocytes # (Auto) 0.3, Eosinophils # (Auto) 0.0, Basophils # (Auto) 0.0, Immature Granulocyte # (Auto) 0.0, Neutrophils % (Manual) 83, Lymphocytes % (Manual) 8, Monocytes % (Manual) 5, Eosinophils % (Manual) 0, Basophils % (Manual) 0, Band Neutrophils 4, Platelet Estimate NORMAL, Poikilocytosis SLIGHT, Acanthocytes SLIGHT, Sodium Level 136, Potassium Level 4.0, Chloride Level 98, Carbon Dioxide Level 23, Anion Gap 15, Blood Urea Nitrogen 26, Creatinine 0.96, Estimat Glomerular Filtration Rate 60, BUN/Creatinine Ratio 27, Glucose Level 168, Lactic Acid Level 1.25, Calcium Level 9.3, Corrected Calcium 9.3, Magnesium Level 1.8, Total Bilirubin 0.9, Aspartate Amino Transf (AST/SGOT) 40, Alanine Aminotransferase (ALT/SGPT) 63, Alkaline Phosphatase 137, Troponin I < 0.30, C- Reactive Protein < 0.30, Pro-B-Type Natriuretic Peptide 20228.0, Total Protein 6.2, Albumin 4.0 02/12/23 08:10: Influenza Type A (RT-PCR) Not Detected, Influenza Type B (RT-PCR) Not Detected, SARS-CoV-2 RNA (RT-PCR) Not Detected 02/12/23 09:00: Urine Color YELLOW, Urine Clarity CLEAR, Urine pH 5.5, Urine Specific [place] 1.025, Urine Protein 2+, Urine Glucose (UA) NEGATIVE, Urine Ketones NEGATIVE, Urine Nitrite NEGATIVE, Urine Bilirubin NEGATIVE, Urine Urobilinogen 0.2, Urine Leukocyte Esterase NEGATIVE, Urine RBC (Auto) TRACE-I, Urine RBC RARE, Urine WBC 0-2, Urine Squamous Epithelial Cells NONE, Urine Crystals NONE, Urine Bacteria NEGATIVE, Urine Casts PRESENT, Urine Hyaline Casts 2-5, Urine Mucus NEGATIVE, Urine Culture Indicated NO 02/13/23 04:19: White Blood Count 8.8, Red Blood Count 3.56, Hemoglobin 10.7, Hematocrit 32, Mean Corpuscular Volume 90, Mean Corpuscular Hemoglobin 30, Mean Corpuscular Hemoglobin Concent 33, Red Cell Distribution Width 15.1, Platelet Count 148, Mean Platelet Volume 9.8, Immature Granulocyte % (Auto) 0, Neutrophils (%) (Auto) 80, Lymphocytes (%) (Auto) 11, Monocytes (%) (Auto) 8, Eosinophils (%) (Auto) 1, Basophils (%) (Auto) 0, Neutrophils # (Auto) 7.0, Lymphocytes # (Auto) 1.0, Monocytes # (Auto) 0.7, Eosinophils # (Auto) 0.1, Basophils # (Auto) 0.0, Immature Granulocyte # (Auto) 0.0, Sodium Level 140, Potassium Level 3.1, Chloride Level 105, Carbon Dioxide Level 25, Anion Gap 10, Blood Urea Nitrogen 25, Creatinine 0.88, Estimat Glomerular Filtration Rate 66, BUN/Creatinine Ratio 28, Glucose Level 87, Calcium Level 8.2, Corrected Calcium 9.2, Total Bilirubin 1.1, Aspartate Amino Transf (AST/SGOT) 23, Alanine Aminotransferase (ALT/SGPT) 40, Alkaline Phosphatase 78, Troponin I 0.043, Total Protein 4.7, Albumin 2.8, B-Type Natriuretic Peptide 3536.4, Thyroid Stimulating Hormone (TSH) 6.60 02/14/23 03:54: White Blood Count 7.9, Red Blood Count 3.45, Hemoglobin 10.5, Hematocrit 32, Mean Corpuscular Volume 91, Mean Corpuscular Hemoglobin 30, Mean Corpuscular Hemoglobin Concent 33, Red Cell Distribution Width 15.2, Platelet Count 142, Mean Platelet Volume 9.7, Immature Granulocyte % (Auto) 0, Neutrophils (%) (Auto) 74, Lymphocytes (%) (Auto) 14, Monocytes (%) (Auto) 9, Eosinophils (%) (Auto) 2, Basophils (%) (Auto) 1, Neutrophils # (Auto) 5.8, Lymphocytes # (Auto) 1.1, Monocytes # (Auto) 0.7, Eosinophils # (Auto) 0.2, Basophils # (Auto) 0.0, Immature Granulocyte # (Auto) 0.0, Sodium Level 135, Potassium Level 3.5, Chloride Level 101, Carbon Dioxide Level 25, Anion Gap 9, Blood Urea Nitrogen 31, Creatinine 1.00, Estimat Glomerular Filtration Rate 57, BUN/Creatinine Ratio 31, Glucose Level 99, Calcium Level 8.2, Corrected Calcium 9.0, Total Bilirubin 1.0, Aspartate Amino Transf (AST/SGOT) 25, Alanine Aminotransferase (ALT/SGPT) 38, Alkaline Phosphatase 80, Total Protein 4.9, Albumin 3.0 02/15/23 05:25: White Blood Count 7.4, Red Blood Count 3.79, Hemoglobin 11.4, Hematocrit 34, Mean Corpuscular Volume 91, Mean Corpuscular Hemoglobin 30, Mean Corpuscular Hemoglobin Concent 33, Red Cell Distribution Width 15.2, Platelet Count 192, Mean Platelet Volume 10.1, Immature Granulocyte % (Auto) 0, Neutrophils (%) (Auto) 70, Lymphocytes (%) (Auto) 17, Monocytes (%) (Auto) 9, Eosinophils (%) (Auto) 4, Basophils (%) (Auto) 1, Neutrophils # (Auto) 5.1, Lymphocytes # (Auto) 1.3, Monocytes # (Auto) 0.6, Eosinophils # (Auto) 0.3, Basophils # (Auto) 0.0, Immature Granulocyte # (Auto) 0.0, Sodium Level 139, Potassium Level 3.7, Chloride Level 105, Carbon Dioxide Level 26, Anion Gap 8, Blood Urea Nitrogen 29, Creatinine 1.13, Estimat Glomerular Filtration Rate 49, BUN/Creatinine Ratio 26, Glucose Level 88, Calcium Level 8.6, Corrected Calcium 9.3, Total Bilirubin 0.9, Aspartate Amino Transf (AST/SGOT) 19, Alanine Aminotransferase (ALT/SGPT) 32, Alkaline Phosphatase 79, Total Protein 5.2, Albumin 3.1 Discharge Home Medications: Active Scripts Active Reported Carvedilol 12.5 Mg Tablet 12.5 Mg PO BID WITH MEALS Levothyroxine Sodium 75 Mcg Tablet 75 Mcg PO DAILY Captopril 12.5 Mg Tablet 12.5 Mg PO DAILY Instructions to patient/family Please see electronic discharge instructions given to patient. FRANCISCA ANDERSEN DO Feb 16, 2023 12:14
[2023-02-16 12:16] VITALS: BP 121/55
--- NOTE | 2023-02-16 13:16 | Progress Note ---
JEAN CARLOS EAGLE 02/16/23 1316: Progress Note Kiara Wall is an 82 year old female with a past medical history of HTN, CHF, dementia, CAD, and hypothyroidism. She presented to the ED on 02/12/23 with shortness of breath. In the ED her BNP was 57,000+ and her chest xray was significant for vascular congestion, edema, bibasilar infiltrates, and large bi lateral pleural effusions. She was diagnosed as being in an exacerbation of her CHF and was subsequently admitted. Dr. Moffett was consulted on the and he started her on IV lasix and had a 2D echo done that showed EF 25-30% with moderate-severe mitral regurgitation, mild-moderate aortic regurgitation, dilated LV, and PA pressure 45-50mmHg. On 02/13/23 she was started on Captopril, Coreg, Jardiance, and Aldactone. Her initial troponin on 02/12 was negative however repeat on 02/13 showed an upward trend at 0.043. Dr. Moffett attributed this to a likely type II [place] secondary to her cardiomyopathy. Conservative management was recommended over intervention. She remained stable over the next several days. Repeat chest xray on 02/15/23 showed no changes from admission imaging. Given her conditions being stable through her hospital stay and no need for further intervention she is ready for discharge today, 02/16/23. MARAH ANDERSEN DO 02/17/23 0549: Supervisory-Addendum Brief Verification & Attestation Participated in pt care: history, MDM, physical Personally performed: exam, history, MDM, supervision of care Care discussed with: Medical Student Procedures: n/a Results interpretation: Verified all documentation Verification and Attestation of Medical Student E/M Service A medical student performed and documented this service in my presence. I reviewed and verified all information documented by the medical student and made modifications to such information, when appropriate. I personally performed the physical exam and medical decision making. Marah Andersen, Feb 17, 2023,05:49 JEAN CARLOS EAGLE Feb 16, 2023 13:16 MARAH ANDERSEN DO Feb 17, 2023 05:49
[2023-02-16] MEDS: ENOXAPARIN 40 MG/0.4 ML SYRINGE SC SCH (14:13)
[2023-02-16 15:25] VITALS: BP 111/53
== END 2023-02-16 17:00 | disposition home or self-care (01) | DRG 280 ==
LOC: EDUNIT# 07:51 → ER FS 07:53 → ICU 11:15 → 4TH 02-14 15:10
PROVIDERS: ADMIT Family Medicine; ATTEND Internal Medicine
DX: I11.0 Hypertensive heart disease with heart failure (principal); I50.21 Acute systolic (congestive) heart failure; I21.A1 Myocardial infarction type 2; J96.01 Acute respiratory failure with hypoxia; F03.94 Unspecified dementia, unspecified severity, with anxiety; E78.5 Hyperlipidemia, unspecified; I25.10 Atherosclerotic heart disease of native coronary artery without angina pectoris; E03.9 Hypothyroidism, unspecified; Z20.822 Contact with and (suspected) exposure to COVID-19; I34.0 Nonrheumatic mitral (valve) insufficiency; E87.6 Hypokalemia; I25.5 Ischemic cardiomyopathy; Z66 Do not resuscitate
CPT/HCPCS: 36415; 51702; 71045; 71046; 80053; 81000; 83605; 83735; 83880; 84443; 84484; 85007; 85025; 85027; 86141; 87040; 87636; 93005; 93041; 93306; 94640; 94660; 94760; 96374